=== PATIENT | male | born 1970 | race Caucasian/White ===

== ENCOUNTER 2018-06-18 08:19 | Day surgery (SDC) | payer BC, OTHER ==
[2018-06-15 11:24] VITALS: BMI 31.4
[~2018-06-18 08:19] MED LIST: LACTATED RINGERS 1,000 ML IV SCH; LIDOCAINE 1% 20 ML VIAL (10MG/ML) FOR IV START INTRADERMA PRN
[2018-06-18 09:16] VITALS: RESP 16; TEMP 98.2
[2018-06-18] MEDS ORDERED: PROPOFOL 10 MG/ML 20 ML VIAL IV ONE (09:41)
[2018-06-18] MEDS ORDERED: LIDOCAINE 1% INJ 10MG/ML (20 ML MDV) ONE (09:41)
--- NOTE | 2018-06-18 09:54 | P.GSHP ---
History of Present Illness H&P Date: 06/18/18 Chief Complaint: GI bleed This a 47-year-old male referred from Dr. Mando Willis. Patient rents today for colonoscopy. He's had issues with rectal bleeding. Patient states heis blood when he wipes himself. Past Medical History Past Medical History: GERD/Reflux Additional Past Medical History / Comment(s): neck pain, blood in stool @times, frequent bloating, diarrhea @times, blind right eye History of Any Multi-Drug Resistant Organisms: None Reported Past Surgical History: Orthopedic Surgery Additional Past Surgical History / Comment(s): right arm,wrist, right side of face & knee surg related to accident Past Anesthesia/Blood Transfusion Reactions: No Reported Reaction Smoking Status: Never smoker - Past Family History Mother Family Medical History: No Reported History Medications and Allergies Home Medications Medication Instructions Recorded Confirmed Type Ibuprofen [Motrin] 800 mg PO TID PRN 03/11/17 06/18/18 History Atorvastatin [Lipitor] 10 mg PO DAILY 06/15/18 06/18/18 History Esomeprazole Magnesium [NexIUM] 1 tab PO DAILY 06/15/18 06/18/18 History Topiramate [Topamax] 25 mg PO DAILY 06/18/18 06/18/18 History Allergies Allergy/AdvReac Type Severity Reaction Status Date / Time No Known Allergies Allergy Verified 06/15/18 11:10 Surgical - Exam Vital Signs Temp Pulse Resp BP Pulse Ox 98.2 F 87 16 133/86 95 06/18/18 09:14 06/18/18 09:14 06/18/18 09:14 06/18/18 09:14 06/18/18 09:14 - General well developed, no distress - Eyes PERRL - ENT normal pinna - Neck no masses - Respiratory normal expansion - Cardiovascular Rhythm: regular - Abdomen Abdomen: soft, non tender Assessment and Plan Assessment: GI bleed. We'll perform colonoscopy.
--- NOTE | 2018-06-18 10:04 | P.OP ---
Date of Procedure: 06/18/18 Preoperative Diagnosis: Rectal bleeding Postoperative Diagnosis: Internal hemorrhoids Diverticulosis Procedure(s) Performed: Colonoscopy Anesthesia: MAC Surgeon: Willis Lara Pathology: none sent Condition: stable Disposition: PACU Description of Procedure: The patient's placed on the endoscopy table in the lateral position. He received IV sedation. Digital rectal exam was performed which revealed internal hemorrhoids. The flexible colonoscope was then placed patient anus passed rotator entire colon. The ileocecal valve was visualized. The cecum, ascending and transverse colon appeared normal. In the descending and sigmoid colon there is moderate diverticular changes. The scope was then brought back the rectum and this appeared normal. Scope was withdrawn through the anus and internal hemorrhage were noted. There is no evidence of any active GI bleed. It was presumed the patient's previous rectal bleeding was due to internal hemorrhoids.
[2018-06-18 10:55] VITALS: BP 150/88; PULSE 88
== END 2018-06-18 10:53 | disposition home or self-care (01) ==
LOC: ORWHC2ENDO 08:19
PROVIDERS: ATTEND Surgery
DX: K64.8 Other hemorrhoids (principal); K57.30 Diverticulosis of large intestine without perforation or abscess without bleeding; K21.9 Gastro-esophageal reflux disease without esophagitis; M54.2 Cervicalgia; H54.61 Unqualified visual loss, right eye, normal vision left eye; E78.5 Hyperlipidemia, unspecified; Z79.899 Other long term (current) drug therapy
CPT/HCPCS: 45378; J2001; J2704

== ENCOUNTER 2018-09-06 15:52 | Inpatient (IN) | payer BC ==
[2018-09-06] MEDS ORDERED: SODIUM CHLORIDE 0.9% 1,000 ML IV STA (16:12)
[2018-09-06] MEDS ORDERED: KETOROLAC 30 MG/ML 1 ML VIAL IVP STA (16:12)
--- NOTE | 2018-09-06 16:16 | ED ---
General Adult HPI - General Chief complaint: Abdominal Pain Stated complaint: poss hernia Time Seen by Provider: 09/06/18 16:06 Source: patient, RN notes reviewed, old records reviewed Mode of arrival: ambulatory Limitations: no limitations - History of Present Illness Initial comments: 47 -year-old male presents for evaluation of lower abdominal pain. Patient is dull with intermittent abdominal pain over the past several years. Over the past 24-48 hours he's had increasing lower abdominal pain. He reports increased urinary frequency as well as dysuria. Pain is. Only suprapubic. Denies hematuria. Denies testicular pain. Denies flank pain. He does report increased in stool output, no diarrhea. Nothing relieves his pain. Denies upper abdominal pain, denies vomiting. Denies chest pain or dyspnea. - Related Data Home Medications Medication Instructions Recorded Confirmed Ibuprofen [Motrin] 800 mg PO TID PRN 03/11/17 09/06/18 Atorvastatin [Lipitor] 10 mg PO DAILY 06/15/18 09/06/18 Esomeprazole Magnesium [NexIUM] 20 mg PO DAILY 06/15/18 09/06/18 Topiramate [Topamax] 25 mg PO DAILY 06/18/18 09/06/18 Allergies Allergy/AdvReac Type Severity Reaction Status Date / Time No Known Allergies Allergy Verified 09/06/18 16:37 Review of Systems ROS Statement: Those systems with pertinent positive or pertinent negative responses have been documented in the HPI. ROS Other: All systems not noted in ROS Statement are negative. Past Medical History Past Medical History: GERD/Reflux Additional Past Medical History / Comment(s): neck pain, blood in stool @times, frequent bloating, diarrhea @times, blind right eye History of Any Multi-Drug Resistant Organisms: None Reported Past Surgical History: Orthopedic Surgery Additional Past Surgical History / Comment(s): right arm,wrist, right side of face & knee surg related to accident Past Anesthesia/Blood Transfusion Reactions: No Reported Reaction Past Psychological History: No Psychological Hx Reported Smoking Status: Never smoker Past Alcohol Use History: None Reported Past Drug Use History: None Reported - Past Family History Mother Family Medical History: No Reported History General Exam Limitations: no limitations General appearance: alert, in no apparent distress Head exam: Present: atraumatic, normocephalic Eye exam: Present: normal appearance, PERRL ENT exam: Present: mucous membranes dry Neck exam: Present: normal inspection. Absent: tenderness, meningismus Respiratory exam: Present: normal lung sounds bilaterally. Absent: respiratory distress, wheezes Cardiovascular Exam: Present: normal rhythm, tachycardia GI/Abdominal exam: Present: soft, tenderness (Suprapubic tenderness). Absent: distended, guarding, rebound exam: Present: vertical testicular lie. Absent: testicular tenderness, urethral discharge, scrotal swelling Extremities exam: Present: normal inspection, normal capillary refill. Absent: pedal edema Neurological exam: Present: alert, oriented X3, CN II-XII intact. Absent: motor sensory deficit Psychiatric exam: Present: normal affect, normal mood Skin exam: Present: warm, dry, intact. Absent: cyanosis, diaphoretic Course Vital Signs 09/06/18 09/06/18 16:02 17:43 Temperature 100.0 F H 98.7 F Pulse Rate 120 H 121 H Respiratory 18 18 Rate Blood Pressure 142/86 131/93 O2 Sat by Pulse 95 Oximetry Medical Decision Making - Medical Decision Making 47-year-old male with lower abdominal pain. Patient is febrile, tachycardic on initial evaluation. Workup in the emergency department reveals elevated white count 19,000. Normal lactic acid, otherwise normal laboratory studies. CT is performed, shows sigmoid diverticulitis with fat stranding, no perforation. Patient is initiated on Zosyn and Flagyl. He remains somewhat tachycardic with persistent symptoms. Will be admitted for IV antibiotics, IV fluids, and pain control. Case discussed with admitting physician. - Lab Data Result diagrams: 09/06/18 16:28 09/06/18 16:28 Lab Results 09/06/18 09/06/18 09/06/18 Range/Units 16:15 16:28 16:28 WBC 18.9 H (3.8-10.6) k/uL RBC 5.46 (4.30-5.90) m/uL Hgb 15.9 (13.0-17.5) gm/dL Hct 46.5 (39.0-53.0) % MCV 85.2 (80.0-100.0) fL MCH 29.1 (25.0-35.0) pg MCHC 34.1 (31.0-37.0) g/dL RDW 13.7 (11.5-15.5) % Plt Count 320 (150-450) k/uL Neutrophils % 83 % Lymphocytes % 10 % Monocytes % 5 % Eosinophils % 1 % Basophils % 0 % Neutrophils # 15.6 H (1.3-7.7) k/uL Lymphocytes # 1.9 (1.0-4.8) k/uL Monocytes # 1.0 (0-1.0) k/uL Eosinophils # 0.2 (0-0.7) k/uL Basophils # 0.1 (0-0.2) k/uL Sodium 142 (137-145) mmol/L Potassium 4.1 (3.5-5.1) mmol/L Chloride 109 H (98-107) mmol/L Carbon Dioxide 23 (22-30) mmol/L Anion Gap 10 mmol/L BUN 20 (9-20) mg/dL Creatinine 0.98 (0.66-1.25) mg/dL Est GFR (CKD-EPI)AfAm >90 (>60 ml/min/1.73 sqM) Est GFR (CKD-EPI)NonAf >90 (>60 ml/min/1.73 sqM) Glucose 104 H (74-99) mg/dL Plasma Lactic Acid Sterling (0.7-2.0) mmol/L Calcium 10.3 H (8.4-10.2) mg/dL Total Bilirubin 0.6 (0.2-1.3) mg/dL AST 31 (17-59) U/L ALT 40 (21-72) U/L Alkaline Phosphatase 82 (38-126) U/L Total Protein 7.5 (6.3-8.2) g/dL Albumin 4.7 (3.5-5.0) g/dL Amylase 75 (30-110) U/L Lipase 152 (23-300) U/L Urine Color Yellow Urine Appearance Clear (Clear) Urine pH 5.5 (5.0-8.0) Ur Specific Temple 1.025 (1.001-1.035) Urine Protein Negative (Negative) Urine Glucose (UA) Negative (Negative) Urine Ketones Negative (Negative) Urine Blood Trace H (Negative) Urine Nitrite Negative (Negative) Urine Bilirubin Negative (Negative) Urine Urobilinogen <2.0 (<2.0) mg/dL Ur Leukocyte Esterase Negative (Negative) Urine RBC 1 (0-5) /hpf Urine WBC <1 (0-5) /hpf Urine Mucus Rare H (None) /hpf 09/06/18 Range/Units 16:28 WBC (3.8-10.6) k/uL RBC (4.30-5.90) m/uL Hgb (13.0-17.5) gm/dL Hct (39.0-53.0) % MCV (80.0-100.0) fL MCH (25.0-35.0) pg MCHC (31.0-37.0) g/dL RDW (11.5-15.5) % Plt Count (150-450) k/uL Neutrophils % % Lymphocytes % % Monocytes % % Eosinophils % % Basophils % % Neutrophils # (1.3-7.7) k/uL Lymphocytes # (1.0-4.8) k/uL Monocytes # (0-1.0) k/uL Eosinophils # (0-0.7) k/uL Basophils # (0-0.2) k/uL Sodium (137-145) mmol/L Potassium (3.5-5.1) mmol/L Chloride (98-107) mmol/L Carbon Dioxide (22-30) mmol/L Anion Gap mmol/L BUN (9-20) mg/dL Creatinine (0.66-1.25) mg/dL Est GFR (CKD-EPI)AfAm (>60 ml/min/1.73 sqM) Est GFR (CKD-EPI)NonAf (>60 ml/min/1.73 sqM) Glucose (74-99) mg/dL Plasma Lactic Acid Sterling 1.2 (0.7-2.0) mmol/L Calcium (8.4-10.2) mg/dL Total Bilirubin (0.2-1.3) mg/dL AST (17-59) U/L ALT (21-72) U/L Alkaline Phosphatase (38-126) U/L Total Protein (6.3-8.2) g/dL Albumin (3.5-5.0) g/dL Amylase (30-110) U/L Lipase (23-300) U/L Urine Color Urine Appearance (Clear) Urine pH (5.0-8.0) Ur Specific Temple (1.001-1.035) Urine Protein (Negative) Urine Glucose (UA) (Negative) Urine Ketones (Negative) Urine Blood (Negative) Urine Nitrite (Negative) Urine Bilirubin (Negative) Urine Urobilinogen (<2.0) mg/dL Ur Leukocyte Esterase (Negative) Urine RBC (0-5) /hpf Urine WBC (0-5) /hpf Urine Mucus (None) /hpf Disposition Clinical Impression: Diverticulitis Disposition: ADMITTED IP TO THIS [facility] Condition: Stable Is patient prescribed a controlled substance at d/c from ED?: No Referrals: Mando Willis DO [Primary Care Provider] - 1-2 days Decision to Admit Reason: Admit from EC Decision Date: 09/06/18 Decision Time: 18:41
[2018-09-06 16:31] LABS: Appearance,Urine Clear (Clear); Bilirubin,Urine Negative (Negative); Blood,Urine Trace (Negative); Color,Urine Yellow; Glucose,Urine (UA) Negative (Negative); Ketones,Urine Negative (Negative); Leukocyte Esterase,Urine Negative (Negative); Mucus,Urine Rare /hpf; Nitrite,Urine Negative (Negative); PH, Urine 5.5 (5.0-8.0); Protein,Urine Negative (Negative); RBC,Urine 1 /hpf (0-5); Specific Gravity,Urine 1.025 (1.001-1.035); Urobilinogen,Urine <2.0 mg/dL (<2.0); WBC,Urine <1 /hpf (0-5)
[2018-09-06] MEDS ORDERED: MORPHINE SULFATE 4 MG/ML SYRINGE IVP STA (16:45)
[2018-09-06 16:46] LABS: Basophils # (A) 0.1 k/uL (0-0.2); Basophils % (A) 0 %; Eosinophils # (A) 0.2 k/uL (0-0.7); Eosinophils % (A) 1 %; HCT 46.5 % (39.0-53.0); HGB 15.9 gm/dL (13.0-17.5); Lymphocytes # (A) 1.9 k/uL (1.0-4.8); Lymphocytes % (A) 10 %; MCH 29.1 pg (25.0-35.0); MCHC 34.1 g/dL (31.0-37.0); MCV 85.2 fL (80.0-100.0); Mean Platelet Volume 7.3; Monocytes % (A) 5 %; Neutrophils # (A) 15.6 k/uL (1.3-7.7); Neutrophils % (A) 83 %; Platelet Count 320 k/uL (150-450); RBC 5.46 m/uL (4.30-5.90); RDW 13.7 % (11.5-15.5); WBC 18.9 k/uL (3.8-10.6)
[2018-09-06] MEDS ORDERED: ONDANSETRON 4 MG/2 ML VIAL IVP STA (16:47)
[2018-09-06 16:50] LABS: ALT 40 U/L (21-72); AST 31 U/L (17-59); Albumin 4.7 g/dL (3.5-5.0); Alkaline Phosphatase 82 U/L (38-126); Amylase 75 U/L (30-110); Anion Gap 10 mmol/L; Blood Urea Nitrogen 20 mg/dL (9-20); Calcium 10.3 mg/dL (8.4-10.2); Carbon Dioxide 23 mmol/L (22-30); Chloride 109 mmol/L (98-107); Glucose 104 mg/dL (74-99); Lipase 152 U/L (23-300); Potassium 4.1 mmol/L (3.5-5.1); Sodium 142 mmol/L (137-145); Total Bilirubin 0.6 mg/dL (0.2-1.3); Total Protein 7.5 g/dL (6.3-8.2)
--- NOTE | 2018-09-06 16:58 | XR ---
EXAMINATION TYPE: XR KUB DATE OF EXAM: 09/06/2018 COMPARISON: NONE HISTORY: Abdominal pain TECHNIQUE: 2 views FINDINGS: Bowel gas pattern is normal. There is no sign of intestinal obstruction or pneumoperitoneum . Fecal pattern is normal. There is no evidence of a mass. There are no pathologic calcifications. Lung bases are clear. IMPRESSION: Nonacute abdomen.
[2018-09-06] MEDS ORDERED: PIPERACILLIN-TAZOBACTAM 3.375 GM in SODIUM CHLORIDE 0.9% 100 ML IVPB STA (17:08)
--- NOTE | 2018-09-06 17:23 | CT ---
EXAMINATION TYPE: CT abdomen pelvis wo con DATE OF EXAM: 09/06/2018 COMPARISON: None HISTORY: lower anterior abdominal pain CT DLP: 572.5 mGycm Automated exposure control for dose reduction was used. TECHNIQUE: Helical acquisition of images was performed from the lung bases through the pelvis. FINDINGS: Lung bases are clear of consolidation. There is no pleural effusion. Heart size is normal. There is n o pericardial effusion. Liver spleen stomach pancreas gallbladder appear normal. Bile ducts are not d ilated. There is no adrenal mass. Kidneys have normal size and contour. There are a few bilateral renal calcu li that measure up to 6 mm. There is no hydronephrosis. Ureters are not dilated. There is no retroper itoneal adenopathy. Bladder distends smoothly. There is no free fluid in the pelvis. There is no ingu inal hernia. There are multiple sigmoid diverticula. There is some fat stranding around the mid sigmoid colon. Lizzie endix appears normal. There is no free air. There is no ascites. Bony structures are intact. IMPRESSION: THERE IS EVIDENCE OF SIGMOID DIVERTICULITIS. MILD TO MODERATE SIGMOID DIVERTICULOSIS. NORMAL APPENDIX .
[2018-09-06] MEDS ORDERED: metroNIDAZOLE-NS PMX 500 MG in SALINE 1 100ML.BAG IVPB STA (18:36)
[2018-09-06] MEDS ORDERED: ACETAMINOPHEN TAB 325 MG TAB PO PRN (18:37)
[2018-09-06] MEDS ORDERED: KETOROLAC 30 MG/ML 1 ML VIAL IVP PRN (18:37)
[2018-09-06] MEDS ORDERED: ONDANSETRON 4 MG/2 ML VIAL IVP PRN (18:37)
[2018-09-06] MEDS ORDERED: HYDROmorphone 0.5 MG/0.5 ML SYRINGE IVP PRN (18:37)
[2018-09-06] MEDS ORDERED: NALOXONE 0.4 MG/ML 1 ML VIAL IV PRN (18:37)
[2018-09-06] MEDS: SODIUM CHLORIDE 0.9% 1,000 ML IV SCH (20:27)
[2018-09-06 23:36] VITALS: BMI 31.9
[2018-09-07] MEDS: PIPERACILLIN-TAZOBACTAM 3.375 GM in SODIUM CHLORIDE 0.9% 100 ML IVPB SCH ×4 (02:34→23:43)
[2018-09-07] MEDS: metroNIDAZOLE-NS PMX 500 MG in SALINE 1 100ML.BAG IVPB SCH ×3 (05:02→22:17)
[2018-09-07] MEDS: SODIUM CHLORIDE 0.9% 1,000 ML IV SCH ×2 (05:05→13:45)
--- NOTE | 2018-09-07 11:56 | P.GSHP ---
History of Present Illness H&P Date: 09/07/18 Chief Complaint: abdominal pain CHIEF COMPLAINT: Abdominal pain HISTORY OF PRESENT ILLNESS: 47-year-old male who presented to emergency room with a chief complaint of abdominal pain. Patient reports he has been having intermittent abdominal pain over the past week. He reports on Friday he began having severe pain in the lower part of his head. He denied constipation or diarrhea. Denies nausea or vomiting. Patient states he was on the Internet googling his symptoms and thought he had a hernia. Patient underwent colonoscopy with Dr. Lara in June 2018 due to rectal bleeding w hich revealed internal hemorrhoids and diverticulosis. PAST MEDICAL HISTORY: See list. PAST SURGICAL HISTORY: See list. SOCIAL HISTORY: No illicit drug use. REVIEW OF SYSTEMS: CONSTITUTIONAL: Denies fever or chills. HEENT: Denies blurred vision, vision changes, or eye pain. Denies hemoptysis CARDIOVASCULAR: Denies chest pain or pressure. RESPIRATORY: No shortness of breath. GASTROINTESTINAL: Refer to [facility] for pertinent findings HEMATOLOGIC: Denies bleeding disorders. GENITOURINARY: Denies any blood in urine. SKIN: Denies pruitis. Denies rash. PHYSICAL EXAM: VITAL SIGNS: Reviewed. GENERAL: Well-developed in no acute distress. HEENT: No sclera icterus. Extraocular movements grossly intact. Moist buccal mucosa. Head is atraumatic, normocephalic. ABDOMEN: Soft. Nondistended. Tenderness to left lower quadrant. NEUROLOGIC: Alert and oriented. Cranial nerves II through XII grossly intact. IMAGING: CT abdomen and pelvis: Evidence of sigmoid diverticulitis. ASSESSMENT: 1. Abdominal pain 2. Acute sigmoid diverticulitis PLAN: 1. Continue antibiotics 2. Clear liquid diet Nurse practitioner note has been reviewed by physician. Signing provider agrees with the documented findings, assessment, and plan of care. Past Medical History Past Medical History: GERD/Reflux Additional Past Medical History / Comment(s): neck pain, blood in stool @times, frequent bloating, diarrhea @times, blind right eye History of Any Multi-Drug Resistant Organisms: None Reported Past Surgical History: Orthopedic Surgery Additional Past Surgical History / Comment(s): right arm,wrist, right side of face & knee surg related to accident Past Anesthesia/Blood Transfusion Reactions: No Reported Reaction Past Psychological History: No Psychological Hx Reported Smoking Status: Never smoker Past Alcohol Use History: None Reported Past Drug Use History: None Reported - Past Family History Mother Family Medical History: No Reported History Medications and Allergies Home Medications Medication Instructions Recorded Confirmed Type Ibuprofen [Motrin] 800 mg PO TID PRN 03/11/17 09/06/18 History Atorvastatin [Lipitor] 10 mg PO DAILY 06/15/18 09/06/18 History Esomeprazole Magnesium [NexIUM] 20 mg PO DAILY 06/15/18 09/06/18 History Topiramate [Topamax] 25 mg PO DAILY 06/18/18 09/06/18 History Allergies Allergy/AdvReac Type Severity Reaction Status Date / Time No Known Allergies Allergy Verified 09/06/18 16:37 Surgical - Exam Vital Signs Temp Pulse Resp BP 100.0 F H 120 H 18 142/86 09/06/18 16:02 09/06/18 16:02 09/06/18 16:02 09/06/18 16:02 Results - Labs 09/06/18 16:28 09/06/18 16:28 Abnormal Lab Results - Last 24 Hours (Table) 09/06/18 09/06/18 09/06/18 Range/Units 16:15 16:28 16:28 WBC 18.9 H (3.8-10.6) k/uL Neutrophils # 15.6 H (1.3-7.7) k/uL Chloride 109 H (98-107) mmol/L Glucose 104 H (74-99) mg/dL Calcium 10.3 H (8.4-10.2) mg/dL Urine Blood Trace H (Negative) Urine Mucus Rare H (None) /hpf Microbiology - Last 24 Hours (Table) 09/06/18 16:15 Urine Culture - Preliminary Urine,Voided Diabetes panel 09/06/18 Range/Units 16:28 Sodium 142 (137-145) mmol/L Potassium 4.1 (3.5-5.1) mmol/L Chloride 109 H (98-107) mmol/L Carbon Dioxide 23 (22-30) mmol/L BUN 20 (9-20) mg/dL Creatinine 0.98 (0.66-1.25) mg/dL Glucose 104 H (74-99) mg/dL Calcium 10.3 H (8.4-10.2) mg/dL AST 31 (17-59) U/L ALT 40 (21-72) U/L Alkaline Phosphatase 82 (38-126) U/L Total Protein 7.5 (6.3-8.2) g/dL Albumin 4.7 (3.5-5.0) g/dL Calcium panel 09/06/18 Range/Units 16:28 Calcium 10.3 H (8.4-10.2) mg/dL Albumin 4.7 (3.5-5.0) g/dL Pituitary panel 09/06/18 Range/Units 16:28 Sodium 142 (137-145) mmol/L Potassium 4.1 (3.5-5.1) mmol/L Chloride 109 H (98-107) mmol/L Carbon Dioxide 23 (22-30) mmol/L BUN 20 (9-20) mg/dL Creatinine 0.98 (0.66-1.25) mg/dL Glucose 104 H (74-99) mg/dL Calcium 10.3 H (8.4-10.2) mg/dL Adrenal panel 09/06/18 Range/Units 16:28 Sodium 142 (137-145) mmol/L Potassium 4.1 (3.5-5.1) mmol/L Chloride 109 H (98-107) mmol/L Carbon Dioxide 23 (22-30) mmol/L BUN 20 (9-20) mg/dL Creatinine 0.98 (0.66-1.25) mg/dL Glucose 104 H (74-99) mg/dL Calcium 10.3 H (8.4-10.2) mg/dL Total Bilirubin 0.6 (0.2-1.3) mg/dL AST 31 (17-59) U/L ALT 40 (21-72) U/L Alkaline Phosphatase 82 (38-126) U/L Total Protein 7.5 (6.3-8.2) g/dL Albumin 4.7 (3.5-5.0) g/dL
[2018-09-07] MEDS: HEPARIN SODIUM,PORCINE 5,000 UNIT/ML 1 ML VIAL SQ SCH (22:20)
--- NOTE | 2018-09-07 22:24 | P.CONS ---
History of Present Illness - Reason for Consult Consult date: 09/07/18 Medical management - Chief Complaint Abdominal pain - History of Present Illness Patient is a 47-year-old male with a known history of GERD, diverticulosis status post colonoscopy in June 2018, internal hemorrhoids came to ER with the complaints of abdominal pain mainly in the lower abdomen. Patient has been having worsening lower abdominal pain since Friday. Denied any nausea vomiting. No diarrhea but increasing stool output. Patient has been having increased urine frequency. Denied any blood in the stool. Nothing relieves his pain. Denies upper abdominal pain, denies vomiting. Denies chest pain or dyspnea. No cough or sputum production. CT abdomen and pelvis showed there is evidence of sigmoid diverticulitis. Mild to moderate sigmoid diverticulosis. Normal appendix. WBC 18.9. Patient is currently on antibiotics in the form of Zosyn and metronidazole as well. Review of Systems Constitutional: Patient denies any fever or chills . No generalized weakness or weight loss. Abdomen: No nausea no vomiting. No diarrhea. Lower abdominal pain present.. Cardiovascular: Patient denies any chest pain or short of breath no p alpitations. Respiratory: patient denied any cough is from production. No shortness of breath Neurologic: Patient denied any numbness or tingling headache. Musculoskeletal: Patient denies any complaints of joint swelling or deformity. Skin: Negative Psychiatric: Negative Endocrine: No heat or cold intolerance. No recent weight gain. Genitourinary: No dysuria or hematuria. All other 14 point ROS negative except the above Past Medical History Past Medical History: GERD/Reflux Additional Past Medical History / Comment(s): neck pain, blood in stool @times, frequent bloating, diarrhea @times, blind right eye History of Any Multi-Drug Resistant Organisms: None Reported Past Surgical History: Orthopedic Surgery Additional Past Surgical History / Comment(s): right arm,wrist, right side of face & knee surg related to accident Past Anesthesia/Blood Transfusion Reactions: No Reported Reaction Past Psychological History: No Psychological Hx Reported Smoking Status: Never smoker Past Alcohol Use History: None Reported Past Drug Use History: None Reported - Past Family History Mother Family Medical History: No Reported History Medications and Allergies Home Medications Medication Instructions Recorded Confirmed Type Ibuprofen [Motrin] 800 mg PO TID PRN 03/11/17 09/06/18 History Atorvastatin [Lipitor] 10 mg PO DAILY 06/15/18 09/06/18 History Esomeprazole Magnesium [NexIUM] 20 mg PO DAILY 06/15/18 09/06/18 History Topiramate [Topamax] 25 mg PO DAILY 06/18/18 09/06/18 History Allergies Allergy/AdvReac Type Severity Reaction Status Date / Time No Known Allergies Allergy Verified 09/06/18 16:37 Physical Exam Vitals: Vital Signs Temp Pulse Pulse Pulse Resp BP BP 09/07/18 07:20 17 09/07/18 07:00 98.4 F 84 17 122/80 09/07/18 00:08 98.2 F 89 95 16 123/84 09/06/18 20:26 98.7 F 98 20 132/94 09/06/18 17:43 98.7 F 121 H 18 131/93 09/06/18 16:02 100.0 F H 120 H 18 142/86 Pulse Ox 09/07/18 07:20 09/07/18 07:00 94 L 09/07/18 00:08 09/06/18 20:26 96 09/06/18 17:43 95 09/06/18 16:02 Intake and Output 09/06/18 09/07/18 09/07/18 22:59 06:59 14:59 Intake Total 1000 Balance 1000 Intake: Intake, IV Titration 1000 Amount Sodium Chloride 0.9% 1, 1000 000 ml @ 100 mls/hr IV . Q10H [facility] Rx#:[id number] Other: Weight 92.624 kg PHYSICAL EXAMINATION: Patient is lying in the bed comfortably, no acute distress, awake alert and oriented.. HEENT: Normocephalic. Neck is supple. Pupils reactive. Nostrils clear. Oral cavity is moist. Ears reveal no drainage. Neck reveals no JVD, carotid bruits, or thyromegaly. CHEST EXAMINATION: Trachea is central. Symmetrical expansion. Lung de leon clear to auscultation and percussion. CARDIAC: Normal S1, S2 with no gallops. No murmurs ABDOMEN: Soft. Lower abdominal tenderness mild. Bowel sounds normal. No organomegaly. No abdominal bruits. Extremities: reveal no edema. No clubbing or cyanosis Neurologically awake, alert, oriented x3 with well-coordinated movements. No focal deficits noted Skin: No rash or skin lesions. Psychiatric: Coperative. Nonsuicidal Musculoskeletal: No joint swelling or deformity. Normal range of motion. Results CBC & Chem 7: 09/06/18 16:28 09/06/18 16:28 Labs: Abnormal Lab Results - Last 24 Hours (Table) 09/06/18 09/06/18 09/06/18 Range/Units 16:15 16:28 16:28 WBC 18.9 H (3.8-10.6) k/uL Neutrophils # 15.6 H (1.3-7.7) k/uL Chloride 109 H (98-107) mmol/L Glucose 104 H (74-99) mg/dL Calcium 10.3 H (8.4-10.2) mg/dL Urine Blood Trace H (Negative) Urine Mucus Rare H (None) /hpf Microbiology - Last 24 Hours (Table) 09/06/18 16:15 Urine Culture - Preliminary Urine,Voided Assessment and Plan Assessment: Lower abdominal pain secondary to acute sigmoid diverticulitis Sepsis secondary to diverticulitis. Patient was tachycardic and WBC 18.8 on admission.. History of diverticulosis and internal hemorrhoids status post coloscopy in June 2018 Chronic intermittent abdominal pain GERD Right eye blindness DVT prophylaxis Plan: Patient will be continued on IV hydration. Continue with IV antibiotics in the form of Zosyn. Flagyl can be discontinued. Patient was started on clear liquid diet and advance as tolerated. Follow-up CBC and BMP. Otherwise continue the current management and further recommendations based on the clinical course. We will continue to follow. Thank you for your consult. Time with Patient: Greater than 30
[2018-09-08] MEDS: SODIUM CHLORIDE 0.9% 1,000 ML IV SCH (00:52)
[2018-09-08 02:16] VITALS: TEMP 98
[2018-09-08] MEDS: metroNIDAZOLE-NS PMX 500 MG in SALINE 1 100ML.BAG IVPB SCH (05:00)
[2018-09-08] MEDS: PIPERACILLIN-TAZOBACTAM 3.375 GM in SODIUM CHLORIDE 0.9% 100 ML IVPB SCH (07:11)
[2018-09-08] MEDS: HEPARIN SODIUM,PORCINE 5,000 UNIT/ML 1 ML VIAL SQ SCH (07:16)
[2018-09-08 07:20] VITALS: BP 137/82; PULSE 81; RESP 17
[2018-09-08] MEDS ORDERED: PANTOPRAZOLE 40 MG TABLET PO SCH (07:30)
[2018-09-08 07:37] LABS: Anion Gap 8 mmol/L; Blood Urea Nitrogen 11 mg/dL (9-20); Calcium 9.3 mg/dL (8.4-10.2); Carbon Dioxide 26 mmol/L (22-30); Chloride 109 mmol/L (98-107); Glucose 97 mg/dL (74-99); Potassium 3.8 mmol/L (3.5-5.1); Sodium 143 mmol/L (137-145)
[2018-09-08 07:54] LABS: Basophils # (A) 0.1 k/uL (0-0.2); Basophils % (A) 1 %; Eosinophils # (A) 0.2 k/uL (0-0.7); Eosinophils % (A) 2 %; HCT 44.4 % (39.0-53.0); HGB 14.8 gm/dL (13.0-17.5); Lymphocytes # (A) 2.9 k/uL (1.0-4.8); Lymphocytes % (A) 26 %; MCH 29.1 pg (25.0-35.0); MCHC 33.4 g/dL (31.0-37.0); MCV 87.2 fL (80.0-100.0); Mean Platelet Volume 7.2; Monocytes # (A) 0.7 k/uL (0-1.0); Monocytes % (A) 7 %; Neutrophils # (A) 7.2 k/uL (1.3-7.7); Neutrophils % (A) 64 %; Platelet Count 321 k/uL (150-450); RBC 5.09 m/uL (4.30-5.90); RDW 13.7 % (11.5-15.5); WBC 11.2 k/uL (3.8-10.6)
[2018-09-08] MEDS ORDERED: ATORVASTATIN 10 MG TAB PO SCH (09:00)
[2018-09-08] MEDS ORDERED: TOPIRAMATE 25 MG TAB PO SCH (09:00)
--- NOTE | 2018-09-08 13:22 | P.DS ---
Providers Date of admission: 09/06/18 18:37 Expected date of discharge: 09/08/18 Attending physician: Willis Lara Consults: 09/07/18 09:08 Consult Physician Routine Consulting Provider: Mando iWllis Reason/Comments: medical management Do you want consulting provider notified?: Yes Primary care physician: Mando [facility] Course: 47-year-old male who presented to emergency room with a chief complaint of abdominal pain. Patient reports he has been having intermittent abdominal pain over the past week. He reports on Friday he began having severe pain in the lower part of his head. He denied constipation or diarrhea. Denies nausea or vomiting. Patient states he was on the Internet googling his symptoms and thought he had a hernia. Patient underwent colonoscopy with Dr. Lara in June 2018 due to rectal bleeding which revealed internal hemorrhoids and diverticulosis. CAT scan abdomen and pelvis revealed evidence of sigmoid diverticulitis. The patient was placed on IV antibiotics. His abdominal pain has resolved. He is tolerating oral intake. White count on admission was 18.9. Repeat 11.2. Vital signs have been stable. Afebrile. Stable for discharge home today on Cipro and Flagyl for 10 days. Patient is to follow up on an outpatient basis. Please see EMR for further hospital course details. Discharge diagnosis: 1. Abdominal pain 2. Acute sigmoid diverticulitis Nurse practitioner note has been reviewed by physician. Signing provider agrees with the documented findings, assessment, and plan of care. Patient Condition at Discharge: Stable Plan - Discharge Summary Discharge Rx Participant: Yes New Discharge Prescriptions: New Ciprofloxacin HCl [Cipro] 500 mg PO BID #20 tab metroNIDAZOLE [Flagyl] 500 mg PO TID #30 tab No Action Ibuprofen [Motrin] 800 mg PO TID PRN PRN Reason: Pain Atorvastatin [Lipitor] 10 mg PO DAILY Esomeprazole Magnesium [NexIUM] 20 mg PO DAILY Topiramate [Topamax] 25 mg PO DAILY Discharge Medication List Ibuprofen [Motrin] 800 mg PO TID PRN 03/11/17 [History] Atorvastatin [Lipitor] 10 mg PO DAILY 06/15/18 [History] Esomeprazole Magnesium [NexIUM] 20 mg PO DAILY 06/15/18 [History] Topiramate [Topamax] 25 mg PO DAILY 06/18/18 [History] Ciprofloxacin HCl [Cipro] 500 mg PO BID #20 tab 09/08/18 [Rx] metroNIDAZOLE [Flagyl] 500 mg PO TID #30 tab 09/08/18 [Rx] Follow up Appointment(s)/Referral(s): Mando Willis DO [Primary Care Provider] - 09/15/18 2:20 pm Willis Lara MD [STAFF PHYSICIAN] - 09/17/18 2:00 pm Patient Instructions/Handouts: Perforated Bowel (DC) Discharge Disposition: HOME SELF-CARE
--- NOTE | 2018-09-08 23:27 | P.PN ---
Subjective Progress Note Date: 09/08/18 Patient is a 47-year-old male with a known history of GERD, diverticulosis status post colonoscopy in June 2018, internal hemorrhoids came to ER with the complaints of abdominal pain mainly in the lower abdomen. Patient has been having worsening lower abdominal pain since Friday. Denied any nausea v omiting today..he is upright using the bhroom tolerating clear liquidsin no acute distressfrom medical standpoint he could be cleared for discharge when okay by surgery Objective - Vital Signs Vital signs: Vital Signs Temp 98.0 F 09/08/18 01:30 Pulse 81 09/08/18 07:00 Resp 17 09/08/18 07:00 BP 137/82 09/08/18 07:00 Pulse Ox 94 L 09/08/18 07:00 Intake & Output 09/07/18 09/08/18 09/08/18 18:59 06:59 18:59 Intake Total 1000 Balance 1000 Intake: Intake, IV Titration 1000 Amount Piperacillin-Tazobactam 3 100 .375 gm In Sodium Chloride 0.9% 100 ml @ 25 mls/hr IVPB Q8HR [facility] Rx# :[id number] Sodium Chloride 0.9% 1, 800 000 ml @ 100 mls/hr IV . Q10H [facility] Rx#:[id number] metroNIDAZOLE-NS PMX 500 100 mg In Saline 1 100ml.bag @ 100 mls/hr IVPB Q8H [facility] Rx#:[id number] Other: # Voids 2 - Exam GENERAL: This is a -47 year-old male in no apparent distress at the time of examination. Pleasant and cooperative. HEENT: Head is atraumatic, normocephalic. Pupils are equal, round, and reactive to light. Sclerae anicteric. Conjunctivae are clear. Mucus membranes of the mouth are moist. Neck is supple. RESPIRATORY: Clear to auscultation. No wheezes, rales, or rhonchi. No use of accessory muscles. Patient maintaining oxygen saturation greater than 92%. No chest wall tenderness is noted on palpation or with deep breathing. CARDIOVASCULAR: Regular rate and rhythm. S1 and S2 noted. No systolic or diastolic murmur auscultated. No JVD noted. No S3 or S4 noted. GASTROINTESTINAL: No distention noted. Abdomen soft and round. Normal active bowel sounds auscultated x 4 quadrants. No pain or tenderness noted upon palpation. INTEGUMENTARY: No cyanosis. No jaundice. No rashes noted. No cellulitis noted. EXTREMITIES: 2+ peripheral pulses. No evidence of peripheral edema. No calf tenderness noted. NEUROLOGIC: Cranial nerves II-XII intact. PSYCHIATRIC: Awake, alert, and oriented X 3. Appropriate affect. Intact judgement and insight. - Labs CBC & Chem 7: 09/08/18 07:11 09/08/18 07:11 Labs: Abnormal Lab Results - Last 24 Hours (Table) 09/08/18 09/08/18 Range/Units 07:11 07:11 WBC 11.2 H (3.8-10.6) k/uL Chloride 109 H (98-107) mmol/L Microbiology - Last 24 Hours (Table) 09/06/18 16:15 Urine Culture - Final Urine,Voided 09/06/18 17:21 Blood Culture - Preliminary Blood No Growth after 24 hours Assessment and Plan (1) Diverticulitis Status: Acute Code(s): K57.92 - DVTRCLI OF INTEST, PART UNSP, W/O PERF OR ABSCESS W/O BLEED SNOMED Code(s): 031625364 Plan: plan is continue Flagyl and Cipro by mouth as outpatient. Follow-up as o utpatient when cleared.
--- NOTE | 2018-09-09 13:17 | CDI ---
Documentation Clarification Form Date: 09/09/18 From: Shweta Miguel Adrienne Keegan, Linting Machine Operator Hours-8:30 am & 5 pm MHowie Admit Date: 09/06/2018 6:37:00 PM Patient Name: Porfirio Nix Visit Number: [id number] Discharge Date: 09/08/2018 10:30:00 AM ATTENTION: The Clinical Documentation Specialists (CDI) and [facility] Coding Staff appreciate your assistance in clarifying documentation. Please respond to the clarification below the line at the bottom and electronically sign. The CDI & [facility] Coding staff will review the response and follow-up if needed. Please note: Queries are made part of the Legal Health Record. If you have any questions, please contact the author of this message via ITS. Dr. Willis Lara Conflicting documentation has been found in the medical record related to sepsis. Per Dr Newsome consult states that the patient had sepsis due to diverticulitis based on WBC 18.9 & Tachycardia. You make no mention of sepsis in your documentation. History/Risk Factors: diverticulitis, GERD, internal hemorrhoids Clinical Indicators: WBC 18.9, Neutrophils 15.6, Heart rate 120/121, lactic acid-1.2 Treatment: IV Zosyn & IV Flagyl In your opinion, what is the most clinically appropriate diagnosis for this patient? Sepsis ruled out Sepsis ruled in Other explanation of clinical findings Unable to determine (no explanation for clinical findings) MTDD
--- NOTE | 2018-09-22 11:47 | CDI ---
Documentation Clarification Form Date: 09/22/2018 From: Shweta Rivera Phone: If questions call Adrienne Allison @ [phone], Hours-8:30 am & 5 pm M- Aleena Admit Date: 09/06/2018 6:37:00 PM Patient Name: Porfirio Nix Visit Number: [id number] Discharge Date: 09/08/2018 10:30:00 AM ATTENTION: The Clinical Documentation Specialists (CDI) and [facility] Coding Staff appreciate your assistance in clarifying documentation. Please respond to the clarification below the line at the bottom and electronically sign. The CDI & [facility] Coding staff will review the response and follow-up if needed. Please note: Queries are made part of the Legal Health Record. If you have any questions, please contact the author of this message via ITS. Dr. Willis Lara Conflicting documentation has been found in the medical record: Per Dr Newsome consult states that the patient had sepsis. You make no mention of sepsis in your documentation. History/Risk Factors: diverticulitis, GERD, internal hemorrhoids Clinical Indicators: Neutrophils 15.6, P-120/121, lactic acid-1.2 Treatment: IV Zosyn & IV Flagyl In your opinion, what is the most clinically appropriate diagnosis for this patient? Sepsis ruled out Sepsis ruled in Other explanation of clinical findings Unable to determine (no explanation for clinical findings) MTDD
== END 2018-09-08 10:30 | disposition home or self-care (01) | DRG 872 ==
LOC: EC 15:52 → 4SSUR 18:37
PROVIDERS: ADMIT Surgery; ATTEND Surgery
DX: A41.9 Sepsis, unspecified organism (principal); K57.32 Diverticulitis of large intestine without perforation or abscess without bleeding; K21.9 Gastro-esophageal reflux disease without esophagitis; K64.8 Other hemorrhoids; H54.61 Unqualified visual loss, right eye, normal vision left eye; Z79.899 Other long term (current) drug therapy; Z87.19 Personal history of other diseases of the digestive system
CPT/HCPCS: 36415; 74018; 74176; 80048; 80053; 81001; 82150; 83605; 83690; 85025; 87040; 87086; 96361; 96365; 96366; 96375; 99285

== ENCOUNTER → 2019-05-13 | Outpatient (CLI) | payer BC ==
[2019-05-13 15:05] LABS: HCT 48.3 % (39.0-53.0); HGB 16.2 gm/dL (13.0-17.5); MCH 29.6 pg (25.0-35.0); MCHC 33.7 g/dL (31.0-37.0); MCV 87.9 fL (80.0-100.0); Mean Platelet Volume 6.6; Platelet Count 305 k/uL (150-450); RBC 5.49 m/uL (4.30-5.90); RDW 12.4 % (11.5-15.5)
[2019-05-13 15:16] LABS: Potassium 4.4 mmol/L (3.5-5.1)
== END | disposition home or self-care (01) ==
LOC: LABPAT 14:31
PROVIDERS: ATTEND Surgery
DX: Z01.812 Encounter for preprocedural laboratory examination (principal); K57.32 Diverticulitis of large intestine without perforation or abscess without bleeding
CPT/HCPCS: 80051; 85027

== ENCOUNTER 2019-05-19 10:17 | Inpatient (IN) | payer BC ==
[2019-05-17 10:02] VITALS: BMI 30.5
[~2019-05-19 10:17] MED LIST changes: +DEXAMETHASONE SOD PHOSPHATE 10 MG/ML 1 ML VIAL IV ONE; +HEPARIN SODIUM,PORCINE 5,000 UNIT/ML 1 ML VIAL SQ ONE; +HYDROmorphone 0.5 MG/0.5 ML SYRINGE IVP PRN; -LACTATED RINGERS 1,000 ML IV SCH; +MIDAZOLAM 2 MG/2 ML VIAL IV PRN; +ONDANSETRON 4 MG/2 ML VIAL IVP ONE; +SCOPOLAMINE 1.5MG/72HR PATCH TRANSDERM ONE; +metroNIDAZOLE-NS PMX 500 MG in SALINE 1 100ML.BAG IVPB ONE
[2019-05-19] MEDS: LACTATED RINGERS 1,000 ML IV SCH ×4 (11:25→19:21)
[2019-05-19] MEDS ORDERED: fentaNYL (PF) 50 MCG/ML 2 ML AMP IV ONE (11:43)
--- NOTE | 2019-05-19 11:59 | P.GSHP ---
History of Present Illness H&P Date: 05/19/19 Chief Complaint: Diverticulitis This a 48-year-old male with previous history of perforated diverticulitis is. Patient presents today for low anterior resection. Patient is aware of the risks surgery including colostomy. Past Medical History Past Medical History: GERD/Reflux Additional Past Medical History / Comment(s): neck pain, blood in stool @times, frequent bloating, diarrhea @times, blind right eye, pt states fabrice shoulder pain r/t rotator cuff issues History of Any Multi-Drug Resistant Organisms: None Reported Past Surgical History: Orthopedic Surgery Additional Past Surgical History / Comment(s): right arm,wrist, right side of face & knee surg related to accident Past Anesthesia/Blood Transfusion Reactions: No Reported Reaction Past Psychological History: No Psychological Hx Reported Smoking Status: Never smoker Past Alcohol Use History: None Reported Past Drug Use History: None Reported - Past Family History Mother Family Medical History: No Reported History Medications and Allergies Home Medications Medication Instructions Recorded Confirmed Type Atorvastatin [Lipitor] 10 mg PO DAILY 06/15/18 05/19/19 History Topiramate [Topamax] 25 mg PO DAILY 06/18/18 05/19/19 History Acetaminophen [Tylenol] 500 mg PO Q4-6H PRN 05/19/19 05/19/19 History Allergies Allergy/AdvReac Type Severity Reaction Status Date / Time No Known Allergies Allergy Verified 05/19/19 11:04 Surgical - Exam Vital Signs Temp Pulse Resp BP Pulse Ox 98.1 F 89 16 136/90 95 05/19/19 11:01 05/19/19 11:01 05/19/19 11:01 05/19/19 11:01 05/19/19 11:01 - General well developed, well nourished, no distress - Eyes PERRL - ENT normal pinna - Neck no masses - Respiratory normal expansion - Cardiovascular Rhythm: regular - Abdomen Abdomen: soft, non tender Assessment and Plan Assessment: History of perforated diverticulitis. Patient will undergo low anterior resection.
[2019-05-19] MEDS ORDERED: NALOXONE 0.4 MG/ML 1 ML VIAL IV PRN (12:03)
[2019-05-19] MEDS ORDERED: MIDAZOLAM 2 MG/2 ML VIAL ONE (12:38)
[2019-05-19] MEDS ORDERED: PROPOFOL 10 MG/ML 20 ML VIAL IV ONE (12:38)
[2019-05-19] MEDS ORDERED: GLYCOPYRROLATE 0.2 MG/ML 2 ML VIAL ONE (12:38)
[2019-05-19] MEDS ORDERED: LIDOCAINE 1% INJ 10MG/ML (20 ML MDV) ONE (12:38)
[2019-05-19] MEDS ORDERED: fentaNYL (PF) 50 MCG/ML 2 ML AMP ONE (12:38)
[2019-05-19] MEDS ORDERED: ROCURONIUM BROMIDE 10 MG/ML 10 ML VIAL IV ONE (12:38)
[2019-05-19] MEDS ORDERED: PHENYLEPHRINE-0.9% NACL SYG 1 MG/10 ML SYRINGE ONE (12:38)
[2019-05-19] MEDS ORDERED: NEOSTIGMINE 1 MG/ML 10 ML VIAL ONE (12:38)
[2019-05-19] MEDS ORDERED: LACTATED RINGERS 1,000 ML IV ONE (13:03)
[2019-05-19] MEDS ORDERED: ONDANSETRON 4 MG/2 ML VIAL IVP PRN (14:08)
[2019-05-19] MEDS ORDERED: METOCLOPRAMIDE 5 MG/ML 2 ML VIAL IVP PRN (14:08)
[2019-05-19] MEDS ORDERED: BENZOCAINE/MENTHOL LOZENG 1 EACH LOZENGE MUCOUS MEM PRN (14:08)
--- NOTE | 2019-05-19 14:14 | P.OP ---
Date of Procedure: 05/19/19 Preoperative Diagnosis: Diverticulitis Postoperative Diagnosis: Diverticulitis Procedure(s) Performed: Low anterior resection Anesthesia: VASU Surgeon: Willis Lara Estimated Blood Loss (ml): 5 Pathology: other (Sigmoid colon) Condition: stable Disposition: PACU Description of Procedure: DESCRIPTION OF PROCEDURE: The patient was placed on the operating table in the supine position. Patient received a general anesthesia. Patient was then placed in the dorsal lithotomy position. The patients abdomen was prepped and draped in the usual sterile fashion. Through a low midline incision, the abdomen was entered. The Hutchins retractor was placed in the wound. The stomach appeared normal. The small bowel appeared normal. The liver appeared normal. The right colon and transverse colon appeared normal. On the left colon, there was an extensive diverticulosis noted. The sigmoid colon was then mobilized by dividing the white line of Toldt with electrocautery. At this point, the proximal sigmoid colon was transected with a GI stapler after a window had been made in the mesentery. The distal sigmoid colon was then dissected. Mesentery was taken down between Lorraine clamps and ligated with #0 silk ties. At a point beyond the lesion, the bowel was then transected with a Proximate stapler. This was then removed. The splenic flexure was then taken down in order to provide adequate lengthening of the sigmoid colon. At this point, the auto purse-string suture device was placed across the proximal colon and fired. The colon was then opened. The 29 mm EEA anvil was then placed into the colon and then the purse-string was secured. The EEA stapler device was then placed in the patients anus and passed into the rectum. The nail for the EEA was then brought out through the distal rectum and then attached to the anvil. The EEA stapler device was then fired. The anastomosis was inspected. There were 2 good donuts of tissue removed from the EEA stapler. The anastomosis was then tested under water and there was no air leak seen. At this point the abdomen was then irrigated. There was no bleeding seen. The fascia was then closed with double stranded #1 PDS. The skin was closed with roderick. The patient tolerated the procedure well.
[2019-05-19] MEDS: ROPIVACAINE 250 MG, HYDROMORPHONE (PF) 5 MG in SODIUM CHLORIDE 0.9% 200 ML EPIDURAL PRN ×2 (14:15→15:01)
[2019-05-19] MEDS: D5-0.45% NACL WITH KCL 20MEQ/L 1,000 ML IV SCH ×2 (15:38→22:08)
[2019-05-19 15:51] LABS: Basophils % (A) 0 %; Eosinophils # (A) 0.1 k/uL (0-0.7); Eosinophils % (A) 0 %; HCT 48.1 % (39.0-53.0); HGB 15.6 gm/dL (13.0-17.5); Lymphocytes # (A) 1.5 k/uL (1.0-4.8); Lymphocytes % (A) 9 %; MCHC 32.5 g/dL (31.0-37.0); MCV 92.3 fL (80.0-100.0); Mean Platelet Volume 7.2; Monocytes # (A) 0.1 k/uL (0-1.0); Monocytes % (A) 1 %; Neutrophils # (A) 14.6 k/uL (1.3-7.7); Neutrophils % (A) 89 %; Platelet Count 293 k/uL (150-450); RBC 5.22 m/uL (4.30-5.90); RDW 12.5 % (11.5-15.5); WBC 16.3 k/uL (3.8-10.6)
[2019-05-19 16:00] LABS: African American GFR (CKD) >90 (>60 ml/min/1.73 sqM); Anion Gap 11 mmol/L; Blood Urea Nitrogen 16 mg/dL (9-20); Calcium 9.2 mg/dL (8.4-10.2); Carbon Dioxide 21 mmol/L (22-30); Chloride 108 mmol/L (98-107); Glucose 137 mg/dL (74-99); Non-African American GFR(CKD) >90 (>60 ml/min/1.73 sqM); Potassium 4.4 mmol/L (3.5-5.1); Sodium 140 mmol/L (137-145)
[2019-05-19] MEDS: HEPARIN SODIUM,PORCINE 5,000 UNIT/ML 1 ML VIAL SQ SCH (18:30)
[2019-05-19] MEDS: ALVIMOPAN 12 MG CAPSULE PO SCH (22:00)
[2019-05-19] MEDS: FAMOTIDINE 20 MG/2 ML VIAL IV SCH (22:00)
[2019-05-20] MEDS: HEPARIN SODIUM,PORCINE 5,000 UNIT/ML 1 ML VIAL SQ SCH ×4 (00:04→23:40)
[2019-05-20] MEDS: LACTATED RINGERS 1,000 ML IV SCH (00:20)
[2019-05-20] MEDS: D5-0.45% NACL WITH KCL 20MEQ/L 1,000 ML IV SCH ×3 (04:56→23:42)
[2019-05-20] MEDS: diphenhydrAMINE 50 MG/ML 1 ML VIAL IVP PRN ×2 (05:46→11:03)
--- NOTE | 2019-05-20 07:11 | P.PN ---
Progress Note - Text 05/20 650am 48-year-old male status post low anterior resection by Dr. Carter. Postop day 1 patient was seen this morning and evaluated for pain control, patient has an epidural catheter was solution running at 8 mL an hour. She has a VAS of 2 with complaints of pruritus. I ordered Benadryl earlier this morning for him and is feeling much better. No motor or sensory deficits noted. Has been ambulating well. Plan to continue epidural infusion
[2019-05-20] MEDS: ALVIMOPAN 12 MG CAPSULE PO SCH ×2 (08:32→20:11)
[2019-05-20] MEDS: FAMOTIDINE 20 MG/2 ML VIAL IV SCH ×2 (08:32→20:11)
--- NOTE | 2019-05-20 12:07 | P.PN ---
Subjective Progress Note Date: 05/20/19 CHIEF COMPLAINT: Diverticulitis HISTORY OF PRESENT ILLNESS: 48-year-old male who is status post low anterior resection. Postoperative day #1. Patient examined this morning at the bedside. Pain is tolerable. Epidural infusing at 4 mL an hour. Tolerating full liquid diet. Denies passing flatus. Vital signs stable. Temp 99.6 this morning. WBC 16.3. PHYSICAL EXAM: VITAL SIGNS: Reviewed. GENERAL: Well-developed in no acute distress. HEENT: No sclera icterus. Extraocular movements grossly intact. Moist buccal mucosa. Head is atraumatic, normocephalic. ABDOMEN: Soft. Nondistended. Appropriate surgical tenderness. Midline d ressing with serosanguineous drainage. NEUROLOGIC: Alert and oriented. Cranial nerves II through XII grossly intact. ASSESSMENT: 1. History of diverticulitis, status post low anterior resection PLAN: -Pain control. Continue epidural. Discontinue postop day #3 -Continue Cohen catheter will epidural in place -Incentive spirometer 10 times an hour while awake -Increase activity as tolerated -Continue clear liquid diet. Await bowel function Nurse practitioner note has been reviewed by physician. Signing provider agrees with the documented findings, assessment, and plan of care. Objective - Vital Signs Vital signs: Vital Signs Temp 99.6 F 05/20/19 07:00 Pulse 97 05/20/19 08:40 Resp 16 05/20/19 08:40 BP 130/74 05/20/19 07:00 Pulse Ox 95 05/20/19 07:00 Intake & Output 05/19/19 05/20/19 05/20/19 18:59 06:59 18:59 Intake Total 2164.733 1500 Output Total 800 2800 Balance 1364.733 -1300 Weight 88.451 kg Intake: IV 2141 Intake, IV Titration 23.733 1500 Amount D5-0.45% NaCl with KCl 1500 20Meq/l 1,000 ml @ 125 mls/hr IV .Q8H [facility] Rx#: [id number] Ropivacaine 250 mg 23.733 Hydromorphone (Pf) 5 mg In Sodium Chloride 0.9% 200 ml @ Per Protocol EPIDURAL .Q0M PRN Rx#: [id number] Output: Urine 675 2800 Estimated Blood Loss 125 Other: Voiding Method Indwelling Catheter Indwelling Catheter Indwelling Catheter - Labs CBC & Chem 7: 05/19/19 15:28 05/19/19 15:28 Labs: Abnormal Lab Results - Last 24 Hours (Table) 05/19/19 05/19/19 Range/Units 15:28 15:28 WBC 16.3 H (3.8-10.6) k/uL Neutrophils # 14.6 H (1.3-7.7) k/uL Chloride 108 H (98-107) mmol/L Carbon Dioxide 21 L (22-30) mmol/L Glucose 137 H (74-99) mg/dL
[2019-05-20] MEDS: KETOROLAC 30 MG/ML 1 ML VIAL IVP PRN ×2 (13:23→20:11)
[2019-05-21] MEDS: KETOROLAC 30 MG/ML 1 ML VIAL IVP PRN ×2 (04:04→21:34)
[2019-05-21] MEDS: LACTATED RINGERS 1,000 ML IV SCH (04:35)
[2019-05-21 07:16] LABS: Basophils # (A) 0.1 k/uL (0-0.2); Basophils % (A) 0 %; Eosinophils # (A) 0.1 k/uL (0-0.7); Eosinophils % (A) 1 %; HCT 39.8 % (39.0-53.0); HGB 13.4 gm/dL (13.0-17.5); Lymphocytes # (A) 2.5 k/uL (1.0-4.8); Lymphocytes % (A) 18 %; MCH 30.3 pg (25.0-35.0); MCHC 33.7 g/dL (31.0-37.0); MCV 90.1 fL (80.0-100.0); Mean Platelet Volume 7.3; Monocytes % (A) 7 %; Neutrophils # (A) 10.2 k/uL (1.3-7.7); Neutrophils % (A) 73 %; Platelet Count 292 k/uL (150-450); RBC 4.42 m/uL (4.30-5.90); RDW 12.6 % (11.5-15.5)
[2019-05-21 07:23] LABS: African American GFR (CKD) >90 (>60 ml/min/1.73 sqM); Anion Gap 11 mmol/L; Blood Urea Nitrogen 16 mg/dL (9-20); Calcium 9.5 mg/dL (8.4-10.2); Carbon Dioxide 26 mmol/L (22-30); Chloride 102 mmol/L (98-107); Glucose 97 mg/dL (74-99); Non-African American GFR(CKD) >90 (>60 ml/min/1.73 sqM); Potassium 3.9 mmol/L (3.5-5.1); Sodium 139 mmol/L (137-145)
[2019-05-21] MEDS: ALVIMOPAN 12 MG CAPSULE PO SCH ×2 (07:31→21:16)
[2019-05-21] MEDS: D5-0.45% NACL WITH KCL 20MEQ/L 1,000 ML IV SCH ×3 (07:31→21:17)
[2019-05-21] MEDS: FAMOTIDINE 20 MG/2 ML VIAL IV SCH ×2 (07:32→21:17)
[2019-05-21] MEDS: HEPARIN SODIUM,PORCINE 5,000 UNIT/ML 1 ML VIAL SQ SCH ×2 (07:32→16:32)
--- NOTE | 2019-05-21 08:36 | P.PN ---
Progress Note - Text Progress Note Date: 05/21/19 Patient is without complaints. Minimal pain. Ambulating w/o leg weakness. Denies headache or pruritis. Tolerating clears. Epidural @ 4 ml/hr VSS Back - epidural site with some serosanguinous fluid that is dry A/P POD#2 s/p low anterior resection - continue current regimen
--- NOTE | 2019-05-21 13:06 | P.PN ---
Subjective Progress Note Date: 05/21/19 CHIEF COMPLAINT: Diverticulitis HISTORY OF PRESENT ILLNESS: 48-year-old male who is status post low anterior resection. Postoperative day #2. Patient examined this morning at the bedside. Pain is tolerable. Epidural infusing at 4 mL an hour. Tolerating clear liquid diet. patient reports passing flatus. Denies bowel movement. Vital signs stable. afebrile. WBC 14.0. PHYSICAL EXAM: VITAL SIGNS: Reviewed. GENERAL: Well-developed in no acute distress. HEENT: No sclera icterus. Extraocular movements grossly intact. Moist buccal m ucosa. Head is atraumatic, normocephalic. ABDOMEN: Soft. Nondistended. Appropriate surgical tenderness. Midline dressing with serosanguineous drainage. NEUROLOGIC: Alert and oriented. Cranial nerves II through XII grossly intact. ASSESSMENT: 1. History of diverticulitis, status post low anterior resection PLAN: -Pain control. Continue epidural. Discontinue postop day #3 (Tomorrow) -Continue Cohen catheter will epidural in place -Incentive spirometer 10 times an hour while awake -Increase activity as tolerated -Advance diet to full liquid Nurse practitioner note has been reviewed by physician. Signing provider agrees with the documented findings, assessment, and plan of care. Objective - Vital Signs Vital signs: Vital Signs Temp 98.0 F 05/21/19 07:00 Pulse 99 05/21/19 07:38 Resp 18 05/21/19 07:38 BP 144/81 05/21/19 07:00 Pulse Ox 92 L 05/21/19 07:00 Intake & Output 05/20/19 05/21/19 05/21/19 18:59 06:59 18:59 Intake Total 875 250 400 Output Total 4250 1350 Balance -3375 -1100 400 Intake: Intake, IV Titration 875 250 Amount D5-0.45% NaCl with KCl 875 250 20Meq/l 1,000 ml @ 125 mls/hr IV .Q8H [facility] Rx#: [id number] Oral 400 Output: Urine 4250 1350 Uretheral (Cohen) 500 Other: Voiding Method Indwelling Catheter Indwelling Catheter Indwelling Catheter - Labs CBC & Chem 7: 05/21/19 06:27 05/21/19 06:27 Labs: Abnormal Lab Results - Last 24 Hours (Table) 05/21/19 Range/Units 06:27 WBC 14.0 H (3.8-10.6) k/uL Neutrophils # 10.2 H (1.3-7.7) k/uL
[2019-05-21] MEDS: ROPIVACAINE 250 MG, HYDROMORPHONE (PF) 5 MG in SODIUM CHLORIDE 0.9% 200 ML EPIDURAL PRN (14:07)
--- NOTE | 2019-05-21 16:27 | P.CONS ---
History of Present Illness - Reason for Consult Consult date: 05/20/19 medical management Requesting physician: Willis Lara - Chief Complaint abdominal pain - History of Present Illness is a 48-year-old gentleman with prior history of perforated diverticulitis, status post low anterior resection.tolerated procedure well. Pain controlled with epidural. T-max 99.6, WBC 16.3. Tolerating full liquid diet is no nausea vomiting or diarrhea.Passing flatus. Review of Systems ROS Statement: Those systems with pertinent positive or pertinent negative responses have been documented in the HPI. ROS Other: All systems not noted in ROS Statement are negative. Past Medical History Past Medical History: GERD/Reflux Additional Past Medical History / Comment(s): neck pain, blood in stool @times, frequent bloating, diarrhea @times, blind right eye, pt states fabrice shoulder pain r/t rotator cuff issues History of Any Multi-Drug Resistant Organisms: None Reported Past Surgical History: Orthopedic Surgery Additional Past Surgical History / Comment(s): right arm,wrist, right side of face & knee surg related to accident in 1994 Past Anesthesia/Blood Transfusion Reactions: No Reported Reaction Past Psychological History: No Psychological Hx Reported Smoking Status: Never smoker Past Alcohol Use History: None Reported Past Drug Use History: None Reported - Past Family History Mother Family Medical History: No Reported History Medications and Allergies Home Medications Medication Instructions Recorded Confirmed Type Atorvastatin [Lipitor] 10 mg PO DAILY 06/15/18 05/19/19 History Topiramate [Topamax] 25 mg PO DAILY 06/18/18 05/19/19 History Acetaminophen [Tylenol] 500 mg PO Q4-6H PRN 05/19/19 05/19/19 History Hydrocodone/Acetaminophen [[place] 1 tab PO Q6HR PRN 3 Days #12 tab 05/21/19 Rx 5-325] Allergies Allergy/AdvReac Type Severity Reaction Status Date / Time No Known Allergies Allergy Verified 05/19/19 11:04 Physical Exam Vitals: Vital Signs Temp Pulse Pulse Resp BP BP Pulse Ox 05/20/19 14:31 98.1 F 92 17 133/79 94 L 05/20/19 08:40 97 16 05/20/19 07:00 99.6 F 97 16 130/74 95 05/20/19 03:47 16 05/20/19 01:06 98.7 F 102 H 16 123/71 93 L 05/20/19 00:00 16 05/19/19 20:00 18 05/19/19 19:32 97.6 F 106 H 16 151/83 96 05/19/19 17:30 109 H 129/79 05/19/19 17:15 91 112/68 05/19/19 17:00 94 94/55 05/19/19 16:45 87 100/67 05/19/19 16:30 91 103/60 05/19/19 16:15 95 102/56 Intake and Output 05/20/19 05/20/19 05/20/19 06:59 14:59 22:59 Intake Total 750 875 Output Total 2800 3750 Balance -2049 -2874 Intake: Intake, IV Titration 750 875 Amount D5-0.45% NaCl with KCl 750 875 20Meq/l 1,000 ml @ 125 mls/hr IV .Q8H [facility] Rx#: [id number] Output: Urine 2800 3750 Other: Voiding Method Indwelling Catheter Indwelling Catheter PHYSICAL EXAM: VITAL SIGNS: [as above] GENERAL: sitting up in bed, no acute distress HEENT: Conjunctivae normal. eyes normal. NECK: No JVD. No thyroid enlargement. No LNs CARDIOVASCULAR: S1, S2 regular.. No murmur RESPIRATION: Breath sounds diminished in the bases. No rhonchi or crackles. No bronchial breathing. ABDOMEN: Soft, status post surgery, No guarding. no masses palpable.midline dressing-serosanguineous straining Bowel sounds heard. LEGS: No edema. no swelling PSYCHIATRY: Alert and oriented X3, mood and affect normal. NERVOUS SYSTEM: Cranial N 2-12 grossly normal. Moves all 4 limbs. Diffuse weakness No focal deficits. Strength and sensation grossly intact.. Skin: no rash Lymphatic system. No LN neck axilla. Results CBC & Chem 7: 05/21/19 06:27 05/21/19 06:27 Assessment and Plan Assessment: prior history of ruptured diverticulitis, status post low anterior resection Plan: Continue on current medication regime ,monitoring and symptomatic treatment. Pain management and diet advancement as per surgery. Aggressive pulmonary toileting with incentive spirometer reinforced. Increase activity as tolerated. Further recommendations to follow. Thank you Dr. Lara for the consult. The impression and plan of care has been dictated as directed. : I performed a history and examination of this patient, discussed the same with the dictator. I agree with the dictator's note ,documented as a scribe. Any additional findings or plans will be noted.
--- NOTE | 2019-05-21 16:31 | P.PN ---
Subjective Progress Note Date: 05/21/19 status post low anterior resection, postop day 2, maintained on epidural. Pain controlled.passing flatus.afebrile,improving WBC 14.VSS.denies chest pain, palpitations. Objective - Vital Signs Vital signs: Vital Signs Temp 98.2 F 05/21/19 15:00 Pulse 101 H 05/21/19 15:00 Resp 18 05/21/19 15:00 BP 132/80 05/21/19 15:00 Pulse Ox 93 L 05/21/19 15:00 Intake & Output 05/20/19 05/21/19 05/21/19 18:59 06:59 18:59 Intake Total 875 250 922.6 Output Total 4250 1350 Balance -3375 -1100 922.6 Intake: Intake, IV Titration 875 250 522.6 Amount D5-0.45% NaCl with KCl 875 250 350 20Meq/l 1,000 ml @ 125 mls/hr IV .Q8H [facility] Rx#: [id number] Ropivacaine 250 mg 172.6 Hydromorphone (Pf) 5 mg In Sodium Chloride 0.9% 200 ml @ Per Protocol EPIDURAL .Q0M PRN Rx#: [id number] Oral 400 Output: Urine 4250 1350 Uretheral (Cohen) 500 Other: Voiding Method Indwelling Catheter Indwelling Catheter Indwelling Catheter - Exam VITAL SIGNS: [as above] GENERAL: sitting up in bed, no acute distress HEENT: Conjunctivae normal. eyes normal. NECK: No JVD. No thyroid enlargement. No LNs CARDIOVASCULAR: S1, S2 regular.. No murmur RESPIRATION: Breath sounds diminished in the bases. No rhonchi or crackles. No bronchial breathing. ABDOMEN: Soft, status post surgery, No guarding. no masses palpable.midline dressing. Bowel sounds heard. LEGS: No edema. no swelling PSYCHIATRY: Alert and oriented X3, mood and affect normal. NERVOUS SYSTEM: Cranial N 2-12 grossly normal. Moves all 4 limbs. Diffuse weakness No focal deficits. Strength and sensation grossly intact.. Skin: no rash - Labs CBC & Chem 7: 05/21/19 06:27 05/21/19 06:27 Labs: Abnormal Lab Results - Last 24 Hours (Table) 05/21/19 Range/Units 06:27 WBC 14.0 H (3.8-10.6) k/uL Neutrophils # 10.2 H (1.3-7.7) k/uL Assessment and Plan Assessment: prior history of ruptured diverticulitis, status post low anterior resection Plan: Continue on current medication regime ,monitoring and symptomatic treatment. continue with aggressive pulmonary toileting, incentive spirometry reinforce. Pain management and diet advancement as per surgery. Increase activity as tolerated.we will follow along as needed, please do not hesitate to call with any further questions, concerns. Thank you Dr. Lara for the consult. The impression and plan of care has been dictated as directed. : I performed a history and examination of this patient, discussed the same with the dictator. I agree with the dictator's note ,documented as a scribe. Any additional findings or plans will be noted.
[2019-05-22] MEDS: HEPARIN SODIUM,PORCINE 5,000 UNIT/ML 1 ML VIAL SQ SCH ×4 (01:19→23:02)
[2019-05-22] MEDS: LACTATED RINGERS 1,000 ML IV SCH (01:20)
[2019-05-22] MEDS: D5-0.45% NACL WITH KCL 20MEQ/L 1,000 ML IV SCH (05:59)
[2019-05-22 06:53] LABS: Basophils # (A) 0.1 k/uL (0-0.2); Basophils % (A) 1 %; Eosinophils # (A) 0.4 k/uL (0-0.7); Eosinophils % (A) 3 %; HCT 39.2 % (39.0-53.0); HGB 13.3 gm/dL (13.0-17.5); Lymphocytes # (A) 3.1 k/uL (1.0-4.8); Lymphocytes % (A) 29 %; MCH 30.6 pg (25.0-35.0); MCV 89.8 fL (80.0-100.0); Mean Platelet Volume 7.2; Monocytes # (A) 0.9 k/uL (0-1.0); Monocytes % (A) 9 %; Neutrophils % (A) 57 %; Platelet Count 256 k/uL (150-450); RBC 4.36 m/uL (4.30-5.90); RDW 12.5 % (11.5-15.5); WBC 10.6 k/uL (3.8-10.6)
[2019-05-22] MEDS: FAMOTIDINE 20 MG/2 ML VIAL IV SCH ×2 (08:31→21:46)
[2019-05-22] MEDS ORDERED: HYDROmorphone 1 MG/ML 1 ML SYRINGE IVP PRN (10:10)
[2019-05-22] MEDS ORDERED: HYDROcodone/APAP 5-325MG 1 EACH TAB PO PRN (10:10)
--- NOTE | 2019-05-22 10:10 | P.PN ---
Subjective Progress Note Date: 05/22/19 Principal diagnosis: Diverticulitis Patient doing well today. He did have a small bowel movement last night. White blood cell count normal. He is afebrile. He would likely Cohen catheter and epidural removed. Tolerating full liquids. Objective - Vital Signs Vital signs: Vital Signs Temp 98.0 F 05/22/19 07:00 Pulse 104 H 05/22/19 08:30 Resp 18 05/22/19 07:00 BP 137/91 05/22/19 07:00 Pulse Ox 94 L 05/22/19 07:00 Intake & Output 05/21/19 05/22/19 05/22/19 18:59 06:59 18:59 Intake Total 1358.6 2105 200 Output Total 2300 1200 Balance -941.4 905 200 Intake: Intake, IV Titration 522.6 125 Amount D5-0.45% NaCl with KCl 350 125 20Meq/l 1,000 ml @ 50 mls /hr IV .Q20H [facility] Rx#: [id number] Ropivacaine 250 mg 172.6 Hydromorphone (Pf) 5 mg In Sodium Chloride 0.9% 200 ml @ Per Protocol EPIDURAL .Q0M PRN Rx#: [id number] Oral 836 780 200 Tube Feeding 1200 Output: Urine 2300 1200 Other: Voiding Method Indwelling Catheter Indwelling Catheter Indwelling Catheter # Voids 1 # Bowel Movements 1 - Exam Abdomen: Soft, nontender, nondistended, incision clean and dry - Labs CBC & Chem 7: 05/22/19 06:12 05/21/19 06:27 Assessment and Plan (1) Diverticulitis Narrative/Plan: Will advance diet at this time. Remove Cohen and epidural. Ambulate. Current Visit: Yes Status: Acute Code(s): K57.92 - DVTRCLI OF INTEST, PART UNSP, W/O PERF OR ABSCESS W/O BLEED SNOMED Code(s): 947897952
--- NOTE | 2019-05-22 10:49 | P.PN ---
Subjective this is a pleasant 48 years old male with past medical history of GERD, perforated diverticulitis about 1 year ago, he was admitted this time for low anterior resection of his bowel.today is postoperative day #3. A well, he had satisfactorily regular bowel movement last night, is a liquid diet. No abdominal pain no nausea vomiting. His anterior midline incision and the abdomen looks closed and dressing is in place.patient remains an epidural and Cohen catheter with planning to remove them both today.lactic tachycardic buttress of Vitas looks stable. Labs showing leukocytosis improved and his WBC is back to normal at 10.6 K. Objective - Vital Signs Vital signs: Vital Signs Temp 98.0 F 05/22/19 07:00 Pulse 104 H 05/22/19 08:30 Resp 18 05/22/19 07:00 BP 137/91 05/22/19 07:00 Pulse Ox 94 L 05/22/19 07:00 Intake & Output 05/21/19 05/22/19 05/22/19 18:59 06:59 18:59 Intake Total 1358.6 2105 200 Output Total 2300 1200 Balance -941.4 905 200 Intake: Intake, IV Titration 522.6 125 Amount D5-0.45% NaCl with KCl 350 125 20Meq/l 1,000 ml @ 50 mls /hr IV .Q20H [facility] Rx#: [id number] Ropivacaine 250 mg 172.6 Hydromorphone (Pf) 5 mg In Sodium Chloride 0.9% 200 ml @ Per Protocol EPIDURAL .Q0M PRN Rx#: [id number] Oral 836 780 200 Tube Feeding 1200 Output: Urine 2300 1200 Other: Voiding Method Indwelling Catheter Indwelling Catheter Indwelling Catheter # Voids 1 # Bowel Movements 1 - Exam GENERAL: The patient is alert and oriented x3, not in any acute distress. Well d eveloped, well nourished. HEENT: Pupils are round and equally reacting to light. EOMI. No scleral icterus. No conjunctival pallor. Normocephalic, atraumatic. No pharyngeal erythema. No thyromegaly. CARDIOVASCULAR: S1 and S2 present. No murmurs, rubs, or gallops. PULMONARY: Chest is clear to auscultation, no wheezing or crackles. -ABDOMEN: Soft, nontender, nondistended, normoactive bowel sounds. No palpable organomegaly. anterior midline incision, looks close with a dressing is in place MUSCULOSKELETAL: No joint swelling or deformity. EXTREMITIES: No cyanosis, clubbing, or pedal edema. NEUROLOGICAL: Gross neurological examination did not reveal any focal deficits. SKIN: No rashes. no petechiae - Labs CBC & Chem 7: 05/22/19 06:12 05/21/19 06:27 Assessment and Plan Assessment: prior history of ruptured diverticulitis, status post low anterior resection GERD Rotator cuff of shoulder Plan: this is a pleasant 48 years old male who presented for low anterior resection of the bowel. Postoperatively he is doing well, hysterectomy is that so far, his present bowel movement, and his abdominal pain is better. Plan for today is to remove Cohen catheter and epidural catheters.pain management and DVT prophylaxis as per surgery primary team Labs and medication were reviewed.. Continue same treatment. Continue with symptomatic treatment. Resume home medication. Monitor lytes and vitals. DVT and GI prophylaxis. Further recommendations of the clinical course of the p atient thank you for consulting us
[2019-05-23] MEDS: D5-0.45% NACL WITH KCL 20MEQ/L 1,000 ML IV SCH (02:49)
[2019-05-23] MEDS: LACTATED RINGERS 1,000 ML IV SCH (02:49)
[2019-05-23 08:19] VITALS: BP 146/92; PULSE 92; RESP 18; TEMP 98.5
[2019-05-23] MEDS: HEPARIN SODIUM,PORCINE 5,000 UNIT/ML 1 ML VIAL SQ SCH (09:01)
[2019-05-23] MEDS: FAMOTIDINE 20 MG/2 ML VIAL IV SCH (09:01)
--- NOTE | 2019-05-23 10:45 | P.DS ---
Providers Date of admission: 05/19/19 10:17 Expected date of discharge: 05/23/19 Attending physician: Willis Lara Consults: 05/19/19 14:08 Consult Physician Routine Consulting Provider: Mando Willis Consult Reason/Comments: Medical management Do you want consulting provider notified?: Yes Primary care physician: Mando Willis - Discharge Diagnosis(es) (1) Diverticulitis patient was admitted for elective sigmoid resection for diverticulitis. He has done quite well postoperative. His epidural was removed yesterday. He is now tolerating a low fiber diet. Pain is well-controlled. Taking no pain medications other than Toradol. He would like to go home today. Will plan discharge. Follow-up with Dr. Lara 1 week. Current Visit: Yes Status: Acute Plan - Discharge Summary Discharge Rx Participant: Yes New Discharge Prescriptions: New Hydrocodone/Acetaminophen [Haughton 5-325] 1 tab PO Q6HR PRN 3 Days #12 tab PRN Reason: Pain No Action Atorvastatin [Lipitor] 10 mg PO DAILY Topiramate [Topamax] 25 mg PO DAILY Acetaminophen [Tylenol] 500 mg PO Q4-6H PRN PRN Reason: Pain Discharge Medication List Atorvastatin [Lipitor] 10 mg PO DAILY 06/15/18 [History] Topiramate [Topamax] 25 mg PO DAILY 06/18/18 [History] Acetaminophen [Tylenol] 500 mg PO Q4-6H PRN 05/19/19 [History] Hydrocodone/Acetaminophen [Haughton 5-325] 1 tab PO Q6HR PRN 3 Days #12 tab 05/21/19 [Rx] Follow up Appointment(s)/Referral(s): Mando Willis DO [Primary Care Provider] - 1 Week Willis Lara MD [STAFF PHYSICIAN] - 1 Week Activity/Diet/Wound Care/Special Instructions: No driving while taking Haughton No lifting over 10 pounds You may shower. No soaking or tub baths Very light activity until you are reevaluated at your follow up appointment with your surgeon
== END 2019-05-23 12:25 | disposition home or self-care (01) | DRG 331 ==
LOC: 2ORMAIN 10:17 → 4SSUR 14:25
PROVIDERS: ADMIT Surgery; ATTEND Surgery
PROC: 0DTN0ZZ Resection of Sigmoid Colon, Open Approach (ICD-10-PCS; principal; 2019-05-19 12:05)
DX: K57.32 Diverticulitis of large intestine without perforation or abscess without bleeding (principal); D72.829 Elevated white blood cell count, unspecified; H54.61 Unqualified visual loss, right eye, normal vision left eye; L29.9 Pruritus, unspecified; K21.9 Gastro-esophageal reflux disease without esophagitis; Z79.899 Other long term (current) drug therapy
CPT/HCPCS: 80048; 85025; 86850; 86900; 86901; 88307

== ENCOUNTER → 2019-07-08 | Outpatient (CLI) | payer BC ==
--- NOTE | 2019-07-08 14:27 | MR ---
EXAMINATION TYPE: MR shoulder RT wo con DATE OF EXAM: 07/08/2019 COMPARISON: Outside shoulder x-ray June 11, 2019 HISTORY: R shoulder pain with difficulty raising arm overhead for 1.5 years per patient. TECHNIQUE: Multiplanar, multisequence imaging of the right shoulder is performed without contrast. FINDINGS: Rotator Cuff: Distal supraspinatus and infraspinatus tendons are intact. Distal subscapularis tendon is intact. Rotator cuff muscle bulk is preserved. Acromioclavicular Joint: No significant joint space narrowing. No significant spurring. Distal acromi on morphology unremarkable. Glenohumeral Joint: No significant effusion or spurring. Labrum: Some increased signal superior labrum thought present which is diminutive in size or coronal image 14. Biceps Tendon: The long head of biceps is in normal location within bicipital groove. Intra-articular portion not well-visualized. This is better seen on sagittal image 15 corresponding to coronal image 8 with subtle increased signal. Bone marrow signal: Tiny subchondral cysts posterior superior lateral humeral head image 17 and sagit catherine image 22. Other: No additional significant abnormality is appreciated. IMPRESSION: 1. No rotator cuff tear. 2. Possible tear superior labrum versus [place] complex though thickened middle glenohumeral ligament is not well visualized. 3. Some tendinosis intracapsular portion long head of biceps tendon near the anchor.
== END | disposition home or self-care (01) ==
LOC: RADMRIMAIN 13:37
PROVIDERS: ATTEND Orthopaedic Surgery
DX: M67.813 Other specified disorders of tendon, right shoulder (principal)

== ENCOUNTER → 2019-07-15 | Outpatient (CLI) | payer BC ==
[2019-07-15 15:55] LABS: Basophils # (A) 0.1 k/uL (0-0.2); Basophils % (A) 1 %; Eosinophils # (A) 0.2 k/uL (0-0.7); Eosinophils % (A) 2 %; HCT 48.4 % (39.0-53.0); HGB 16.1 gm/dL (13.0-17.5); Lymphocytes % (A) 30 %; MCH 29.6 pg (25.0-35.0); MCHC 33.2 g/dL (31.0-37.0); MCV 89.3 fL (80.0-100.0); Mean Platelet Volume 7.3; Monocytes # (A) 0.6 k/uL (0-1.0); Monocytes % (A) 6 %; Neutrophils # (A) 5.9 k/uL (1.3-7.7); Neutrophils % (A) 59 %; Platelet Count 292 k/uL (150-450); RBC 5.43 m/uL (4.30-5.90); RDW 12.5 % (11.5-15.5); WBC 9.9 k/uL (3.8-10.6)
[2019-07-15 16:05] LABS: Potassium 4.3 mmol/L (3.5-5.1)
== END | disposition home or self-care (01) ==
LOC: LABPAT 14:58
PROVIDERS: ATTEND Orthopaedic Surgery
DX: Z01.812 Encounter for preprocedural laboratory examination (principal); M75.41 Impingement syndrome of right shoulder
CPT/HCPCS: 36415; 80051; 85025

== ENCOUNTER 2019-08-05 07:42 | Day surgery (SDC) | payer BC ==
[2019-08-03 13:24] VITALS: BMI 31.3
--- NOTE | 2019-08-04 14:31 | HP ---
HISTORY AND PHYSICAL DATE OF SURGERY: Porfirio Nix is a 48-year-old patient seen with progressive right shoulder pain. We discussed options for treatment. He elected to proceed with arthroscopy. Consent was obtained. PAST MEDICAL HISTORY: Hyperlipidemia. PAST SURGICAL HISTORY: Colon resection. DAILY MEDICATIONS: Lipitor, Topamax. ALLERGIES: None. SOCIAL HISTORY: Denies tobacco use. PHYSICAL EVALUATION OF THE RIGHT SHOULDER: Flexion 120 degrees. Abduction is 90 degrees. External rotation is 40 degrees with pain and weakness. There is tenderness along the anterior lateral acromion and rotator cuff insertion site. Impingement sign is positive at 90 degrees. His distal neurovascular exam is intact. RADIOGRAPHS OF THE RIGHT SHOULDER: Revealed a type 2 anterior acromion as well as cystic changes of the greater tuberosity. Right shoulder MRI revealed labral tear and biceps tendinitis. IMPRESSION: 1. Right shoulder impingement with labral tear. 2. Right shoulder bicipital tendinitis. 3. Hyperlipidemia. PLAN: Right shoulder arthroscopy with subacromial decompression, arthroscopic labral repair versus debridement, probable biceps tenotomy. MMODL / IJN: [id number] /
[~2019-08-05 07:42] MED LIST changes: -HEPARIN SODIUM,PORCINE 5,000 UNIT/ML 1 ML VIAL SQ ONE; +LACTATED RINGERS 1,000 ML IV SCH; -SCOPOLAMINE 1.5MG/72HR PATCH TRANSDERM ONE; +fentaNYL (PF) 50 MCG/ML 2 ML AMP IVP PRN; -metroNIDAZOLE-NS PMX 500 MG in SALINE 1 100ML.BAG IVPB ONE
[2019-08-05 08:01] VITALS: RESP 16
[2019-08-05] MEDS ORDERED: LIDOCAINE 1% INJ 10MG/ML (20 ML MDV) ONE (09:26)
[2019-08-05] MEDS ORDERED: MIDAZOLAM 2 MG/2 ML VIAL ONE (09:26)
[2019-08-05] MEDS ORDERED: ROPIVACAINE 5 MG/ML 30 ML VIAL ONE (09:26)
[2019-08-05] MEDS ORDERED: PROPOFOL 10 MG/ML 20 ML VIAL IV ONE (09:26)
[2019-08-05] MEDS ORDERED: KETOROLAC 30 MG/ML 1 ML VIAL ONE (09:26)
[2019-08-05] MEDS ORDERED: SUCCINYLCHOLINE CHLORIDE 100 MG/5 ML SYR IV ONE (09:26)
[2019-08-05] MEDS ORDERED: DEXAMETHASONE SOD PHOSPHATE 4 MG/ML 1 ML VIAL ONE (09:26)
[2019-08-05] MEDS ORDERED: fentaNYL (PF) 50 MCG/ML 2 ML AMP ONE (09:26)
[2019-08-05] MEDS ORDERED: LACTATED RINGERS 1,000 ML IV ONE (09:35)
[2019-08-05 10:55] VITALS: TEMP 97.3
--- NOTE | 2019-08-05 10:58 | P.OP ---
Date of Procedure: 08/05/19 Preoperative Diagnosis: Right shoulder impingement Postoperative Diagnosis: 1. Right shoulder rotator cuff tear 2. Right shoulder impingement 3. Right shoulder acromioclavicular joint osteoarthritis 4. Right shoulder partial long head biceps tendon tear Procedure(s) Performed: 1. Right shoulder arthroscopic rotator cuff repair 2. Right shoulder arthroscopic subacromial decompression 3. Right shoulder arthroscopic Nicole procedure 4. Right shoulder arthroscopic biceps tenotomy Implants: 1Arthrex 4.75 swivel lock anchor Anesthesia: GETA, regional (Interscalene block) Surgeon: Cayetano Hartmann Shoulder Joiner #1: Isaiah Juárez Estimated Blood Loss (ml): 5 Pathology: none sent Condition: stable Disposition: PACU Indications for Procedure: 48-year-old patient seen with progressive right shoulder pain. After treatment options were discussed, he elected to proceed with arthroscopy. Operative Findings: See description of procedure Description of Procedure: Patient underwent an interscalene block by department of anesthesia. The patient was then taken to the operative suite. The patient underwent a general anesthetic by the department of anesthesia. The patient was placed into a lateral position and secured. There was appropriate padding of the bony prominence. Right shoulder was then prepped and draped in normal sterile orthopedic fashion. We placed the extremity in 10 pounds of longitudinal traction. A posterior incision was now made for a posterior working portal site. The trocar and cannula were inserted into the glenohumeral joint. Arthroscopy was initiated. Spinal needle was now inserted anteriorly, to ascertain the anterior working portal site. An incision was now made in that area, a trocar was inserted followed by a probe. There was some hyperemia and partial tearing long head biceps tendon. The glenohumeral joint appeared unremarkable. The labrum was thoroughly probed and was found to be stable. I performed an arthros copic biceps tenotomy. The labrum was again probed and found to be stable. Instruments were removed from glenohumeral joint. Utilizing the posterior working portal site, the trocar and cannula were inserted into the subacromial space. Arthroscopy initiated. I made an incision 2 fingerbreadths lateral to the acromion. I introduced my trocar followed by my ArthroCare ablator. I now began ablating thick subacromial bursal tissue, which exposed the undersurface of the anterior acromion. There was diminished subacromial space. There was a very prominent anterior acromion. A motorized bur was introduced and a subacromial decompression was performed. I also excised some osteophytes off the inferior aspect of the distal clavicle. The AC joint was visualized and noted to be fairly arthritic. The motorized bur was introduced in the anterior portal site and a Nicole procedure was performed without difficulty, decompressing the AC joint nicely. I turned my attention to the rotator cuff. I thoroughly probed the rotator cuff and found a perforation along the posterior aspect of the distal supraspinatus. I debrided the margins getting down to stable tendon tissue. I introduced my motorized bur and abraded the footprint area, getting some petechial bleeding. I now passed 2 everted mattress sutures through good bites of rotator cuff tendon with the assistance of Pepe MOREIRA. I now punched a hole in the area of the footprint for insertion of an anchor. I now passed all 4 limbs of suture through the eyelet of a Arthrex 4.75 swivel lock anchor. I now introduced the eyelet into our pre- punch hole. I held that in position while Pepe MOREIRA tensioned the sutures and deployed the anchor. There was good fixation of the anchor. The residual suture limbs were clipped. We had good compression of the tendon along the entire footprint. I injected 1 mL Renyte intra-articular. Instruments now removed from the portal sites. All portal sites were approximated with nylon suture. Sterile dressings were applied followed by a shoulder immobilizer. Isaiah MOREIRA assisted in this complex case. The patient was awakened, transferred to a bed, and taken to recovery in stable condition.
[2019-08-05 12:24] VITALS: BP 140/87; PULSE 93
--- NOTE | 2019-08-05 21:19 | P.ANPRN ---
Procedure Note - Anesthesia - Nerve Block Performed Right Interscalene Single Time Out Performed: Yes Date of Procedure: 08/05/19 Procedure Start Time: Procedure Stop Time: Location of Patient: PreOp Indication: Acute Post-Operative Pain, Requested by Surgeon Sedation Type: Sedate with meaningful contact maintained Preparation: Sterile Prep Position: Supine Needle Types: Pajunk Needle Gauge: 21 Ultrasound used to visualize needle placement: Yes Ultrasound used to observe medication spread: Yes Blood Aspirated: No Pain Paresthesia on Injection Noted: No Resistance on Injection: Normal Image Stored and Saved: Yes Events: Uneventful and Well Tolerated (ropi .5% 30cc plus dexamethasone 4mg)
== END 2019-08-05 12:30 | disposition home or self-care (01) ==
LOC: OR 07:42
PROVIDERS: ATTEND Orthopaedic Surgery
DX: M75.101 Unspecified rotator cuff tear or rupture of right shoulder, not specified as traumatic (principal); M75.41 Impingement syndrome of right shoulder; M19.011 Primary osteoarthritis, right shoulder; S46.111A Strain of muscle, fascia and tendon of long head of biceps, right arm, initial encounter; M25.711 Osteophyte, right shoulder; X58.XXXA Exposure to other specified factors, initial encounter; E78.5 Hyperlipidemia, unspecified; Z79.899 Other long term (current) drug therapy
CPT/HCPCS: 64415; 76942; 29826; 29827; 29824; C1713; Q4212; J2250; J1100 ×2; J0690; J2405; J2001; J3010; J1885; J2795; J0330; J2704

== ENCOUNTER 2020-03-10 09:45 | Day surgery (SDC) | payer BC ==
[2020-03-08 10:47] VITALS: BMI 70.7
[~2020-03-10 09:45] MED LIST changes: -DEXAMETHASONE SOD PHOSPHATE 10 MG/ML 1 ML VIAL IV ONE; -HYDROmorphone 0.5 MG/0.5 ML SYRINGE IVP PRN; +LIDOCAINE 1% (10MG/ML) FOR IV START INTRADERMA PRN; -LIDOCAINE 1% 20 ML VIAL (10MG/ML) FOR IV START INTRADERMA PRN; -MIDAZOLAM 2 MG/2 ML VIAL IV PRN; -ONDANSETRON 4 MG/2 ML VIAL IVP ONE; -fentaNYL (PF) 50 MCG/ML 2 ML AMP IVP PRN
[2020-03-10 10:44] VITALS: RESP 16; TEMP 98.1
[2020-03-10] MEDS ORDERED: PROPOFOL 10 MG/ML 20 ML VIAL IV ONE (11:36)
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
--- NOTE | 2020-03-10 11:48 | P.OP ---
Date of Procedure: 03/10/20 Preoperative Diagnosis: GI bleed Postoperative Diagnosis: Diverticulosis Procedure(s) Performed: Colonoscopy Anesthesia: MAC Surgeon: Willis Lara Pathology: none sent Condition: stable Disposition: PACU Description of Procedure: The patient's placed on the endoscopy table in the lateral position. He received IV sedation. The rectal exam was performed which revealed no abnormalities. The colonoscope was then placed patient anus passed throughout the entire colon. The ileocecal valve lesions. The cecum, ascending and transverse colon appeared normal. In the descending; was mild diverticular changes. The scope was then brought back the rectum this appeared normal. Scope withdrawn for patient.
[2020-03-10 11:58] VITALS: PULSE 75
[2020-03-10 12:12] VITALS: BP 147/91
== END 2020-03-10 12:30 | disposition home or self-care (01) ==
LOC: ORWHC2ENDO 09:45
PROVIDERS: ATTEND Surgery
DX: K57.31 Diverticulosis of large intestine without perforation or abscess with bleeding (principal); K63.89 Other specified diseases of intestine; K21.9 Gastro-esophageal reflux disease without esophagitis; E78.5 Hyperlipidemia, unspecified; H54.61 Unqualified visual loss, right eye, normal vision left eye; M25.512 Pain in left shoulder; G47.33 Obstructive sleep apnea (adult) (pediatric); E66.01 Morbid (severe) obesity due to excess calories; Z98.890 Other specified postprocedural states; Z79.899 Other long term (current) drug therapy; Z68.32 Body mass index [BMI] 32.0-32.9, adult; Z87.81 Personal history of (healed) traumatic fracture
CPT/HCPCS: 45378; J2704

== ENCOUNTER → 2022-03-11 | Outpatient (CLI) | payer BC ==
[2022-03-11 17:59] LABS: Basophils # (A) 0.09 X 10*3/uL (0.00-0.10); Basophils % (A) 0.9 %; Eosinophils # (A) 0.06 X 10*3/uL (0.04-0.35); Eosinophils % (A) 0.6 %; HCT 46.4 % (39.6-50.0); HGB 15.6 g/dL (13.0-17.0); Immature Grans, Automated 0.3 %; Lymphocytes # (A) 2.86 X 10*3/uL (0.90-5.00); Lymphocytes % (A) 29.1 %; MCH 30.1 pg (27.0-32.0); MCHC 33.6 g/dL (32.0-37.0); MCV 89.4 fL (80.0-97.0); Mean Platelet Volume 9.8 fL (9.5-12.2); Monocytes # (A) 0.73 X 10*3/uL (0.20-1.00); Monocytes % (A) 7.4 %; NRBC Per 100 WBC 0 /100 WBCS (0.0-0.0); Neutrophils # (A) 6.05 X 10*3/uL (1.80-7.70); Neutrophils % (A) 61.7 %; Platelet Count 378 X 10*3/uL (140-440); RBC 5.19 X 10*6/uL (4.40-5.60); RDW 12.9 % (11.5-14.5); WBC 9.82 X 10*3/uL (4.50-10.00)
== END | disposition home or self-care (01) ==
LOC: LABPAT 12:28
PROVIDERS: ATTEND Surgery
DX: Z01.812 Encounter for preprocedural laboratory examination (principal); K43.0 Incisional hernia with obstruction, without gangrene
CPT/HCPCS: 85025

== ENCOUNTER → 2022-07-04 | Outpatient (CLI) | payer BC ==
--- NOTE | 2022-07-04 20:49 | MR ---
EXAMINATION TYPE: MR shoulder LT wo con DATE OF EXAM: 07/04/2022 COMPARISON: Outside left shoulder x-ray July 02, 2022 HISTORY: Left shoulder pain for 2 years with difficulty raising arm overhead. TECHNIQUE: Multiplanar, multisequence imaging of the left shoulder is performed without contrast. FINDINGS: Rotator Cuff: Some areas of mild increased signal infraspinatus tendon with some surrounding edema. M ore prominent areas of increased signal in the supraspinatus tendon with small focal tear involving t he anterior fibers at articular surface sagittal image 8 measuring 4 mm in AP diameter. Rotator cuff muscle bulk preserved. Acromioclavicular Joint: Mild narrowing with moderate capsular hypertrophy mass effect along the supe rior aspect supraspinatus muscle and tendon sagittal image 16 for reference. Glenohumeral Joint: Small to moderate size effusion. Fluid extends anteriorly along the course of the subscapularis tendon and muscle. No significant spurring. Labrum: Increased signal superior labrum suggesting degenerative tearing. Biceps Tendon: The long head of biceps is in normal location within bicipital groove. Increased signa l intra-articular portion. Bone marrow signal: No focal abnormal marrow signal is appreciated. Other: Mild edema is seen in the muscle extending from the acromioclavicular joint superiorly and chelly trally. IMPRESSION: Tendinosis/interstitial tearing of the infraspinatus tendon and to greater degree suprasp inatus tendon. Focal partial tearing at articular surface anterior fibers supraspinatus tendon. Degen erative changes as detailed above. Underlying impingement is present. Correlate clinically. There is partial tearing of the central portion long head of biceps tendon.
== END | disposition home or self-care (01) ==
LOC: RADMRIMAIN 08:58
PROVIDERS: ATTEND Orthopaedic Surgery
DX: M19.012 Primary osteoarthritis, left shoulder (principal); M75.112 Incomplete rotator cuff tear or rupture of left shoulder, not specified as traumatic; M25.412 Effusion, left shoulder

== ENCOUNTER 2022-08-21 06:53 | Day surgery (SDC) | payer BC ==
--- NOTE | 2022-08-20 13:18 | HP ---
HISTORY AND PHYSICAL DATE OF SCHEDULED SURGERY: 08/21/2022. HISTORY OF PRESENT ILLNESS: Porfirio Nix is a 51-year-old gentleman, seen with progressive left shoulder pain. We discussed options for treatment. He elected to proceed with left shoulder arthroscopy. Consent regarding the procedure was obtained. PAST MEDICAL HISTORY: Hypertension. PAST SURGICAL HISTORY: Right shoulder arthroscopy, colon resection. DAILY MEDICATIONS: 1. Losartan. 2. Verapamil. 3. Ibuprofen. ALLERGIES: None. SOCIAL HISTORY: Denies tobacco use. PHYSICAL EVALUATION OF LEFT SHOULDER: Flexion is 40 degrees, abduction is 40 degrees, external rotation is 20 degrees with pain and weakness. There is tenderness along the anterolateral acromion and rotator cuff insertion site. Impingement sign is positive at 70 degrees. Cross-body adduction sign is positive. Drop-arm sign is positive. Distal neurovascular exam is intact. RADIOGRAPHS: Left shoulder radiographs revealed a type 2 acromion evidence for acromioclavicular joint osteoarthritis and cystic changes of the tuberosity. Left shoulder MRI revealed impingement, partial rotator cuff tear, partial biceps tendon and labral tear. IMPRESSION: 1. Left shoulder impingement with partial rotator cuff tendon tear. 2. Left shoulder labral tear. 3. Left shoulder partial biceps tear. 4. Hypertension. PLAN: Left shoulder arthroscopy with subacromial decompression, possible arthroscopic rotator cuff repair, debridement, labral tear, and biceps tenotomy versus tenodesis. MMODL / IJN: [id number] /
[2022-08-21] MEDS ORDERED: LACTATED RINGERS 1,000 ML IV SCH (07:18)
[2022-08-21] MEDS ORDERED: ONDANSETRON 4 MG/2 ML VIAL IVP ONE (07:18)
[2022-08-21] MEDS ORDERED: HYDROmorphone 0.5 MG/0.5 ML SYRINGE IVP PRN (07:18)
[2022-08-21] MEDS ORDERED: LIDOCAINE 1% (10MG/ML) FOR IV START INTRADERMA PRN (07:18)
[2022-08-21] MEDS ORDERED: DEXAMETHASONE SOD PHOSPHATE 4 MG/ML 1 ML VIAL IV ONE (07:18)
[2022-08-21] MEDS ORDERED: fentaNYL (PF) 50 MCG/1 ML VIAL IVP ONE (07:53)
[2022-08-21] MEDS ORDERED: MIDAZOLAM 2 MG/2 ML VIAL IVP ONE (07:53)
[2022-08-21] MEDS ORDERED: FAMOTIDINE 20 MG/2 ML VIAL IVP ONE (08:13)
[2022-08-21] MEDS ORDERED: fentaNYL (PF) 50 MCG/ML 2 ML AMP ONE (08:25)
[2022-08-21] MEDS ORDERED: PHENYLEPHRINE-0.9% NACL SYG 1,000 MCG/10 ML SYRINGE ONE (08:25)
[2022-08-21] MEDS ORDERED: PROPOFOL 10 MG/ML 20 ML VIAL IV ONE (08:25)
[2022-08-21] MEDS ORDERED: MIDAZOLAM 2 MG/2 ML VIAL ONE (08:25)
[2022-08-21] MEDS ORDERED: ROCURONIUM 10 MG/ML (5 ML VIAL) IV ONE (08:25)
[2022-08-21] MEDS ORDERED: SUCCINYLCHOLINE CHLORIDE 200 MG/10 ML VIAL IV ONE (08:25)
[2022-08-21] MEDS ORDERED: LIDOCAINE 2% INJ 20 MG/ML (2 ML VIAL) ONE (08:25)
[2022-08-21] MEDS ORDERED: LACTATED RINGERS 1,000 ML IV ONE (09:41)
--- NOTE | 2022-08-21 10:09 | P.OP ---
Date of Procedure: 08/21/22 Preoperative Diagnosis: Left shoulder impingement Postoperative Diagnosis: 1. Left shoulder rotator cuff tear 2. Left shoulder impingement 3. Left shoulder partial long head biceps tendon tear 4. Left shoulder superficial labral tear Procedure(s) Performed: 1. Left shoulder arthroscopic rotator cuff repair 2. Left shoulder arthroscopic subacromial decompression 3. Left shoulder arthroscopic biceps tenotomy 4. Left shoulder arthroscopic debridement labral tear Implants: 1Arthrex 4.75 swivel lock anchor Anesthesia: GETA, regional (Interscalene block) Surgeon: Cayetano Hartmann Powder Core Tester #1: Isaiah Juárez Estimated Blood Loss (ml): 7 Pathology: none sent Condition: stable Disposition: PACU Indications for Procedure: 51-year-old patient seen with progressive left shoulder pain. After treatment options were discussed, he elected to proceed with arthroscopy. Operative Findings: see description of procedure Description of Procedure: Patient underwent an interscalene block by department of anesthesia. The patient was then taken to the operative suite. The patient underwent a general anesthetic by the department of anesthesia. The patient was placed into a lateral position and secured. There was appropriate padding of the bony prominence. Left shoulder was then prepped and draped in normal sterile orthopedic fashion. We placed the extremity in 10 pounds of longitudinal traction. A posterior incision was now made for a posterior working portal site. The trocar and cannula were inserted into the glenohumeral joint. Arthroscopy was initiated. Spinal needle was now inserted anteriorly, to ascertain the anterior working portal site. An incision was now made in that area, a trocar was inserted followed by a probe. There was partial tearing and hyperemia involving the long head biceps tendon. There was some superficial fraying/tearing of the superior labrum. There were some mild grade 1 chondromalacia changes of the glenoid fossa. I performed an arthroscopic biceps tenotomy. I debrided out the superficial labral tear. The residual labrum was probed and was found to be stable. Instruments were now removed from the glenohumeral joint. Utilizing the posterior working portal site, the trocar and cannula were inserted into the subacromial space. Arthroscopy initiated. I made an incision 2 fingerbreadths lateral to the acromion. I introduced my trocar followed by my ArthroCare ablator. I now began ablating thick subacromial bursal tissue, which exposed the undersurface of the anterior acromion. There was diminished suba cromial space. There was a very prominent anterior acromion. A motorized bur was introduced and a subacromial decompression was performed. I also excised some osteophytes off the inferior aspect of the distal clavicle. The AC joint was visualized and noted to to be moderately arthritic. I did not think enough toward a Nicole procedure. I turned my attention to the rotator cuff tendon. There was a full-thickness tear noted along the distal supraspinatus tendon. I debrided the margins getting down to stable tendon tissue. I abraded the footprint with a motorized bur. The defect/tear measuring approximately 1.5 cm and was freely mobile over the footprint. With the assistance of Pepe MOREIRA I passed 3 everted mattress sutures through good bites of rotator cuff tendon. I now punched hole in the footprint area for insertion of an anchor. All 6 limbs of suture were passed through the eyelet of a Arthrex 4.75 swivel lock anchor. I placed the eyelet into the pre-punched hole. I held the eyelet into the pre-punched hole while Pepe MOREIRA tensioned all 6 limbs of suture and deployed the anchor with good fixation noted. All residual suture limbs were now clipped. We had good compression of the tendon along the entire footprint. Instruments now removed from the portal sites. All portal sites were approximated with nylon suture. Sterile dressings were applied followed by a shoulder sling. Isaiah MOREIRA assisted in this case. The patient was awakened, transferred to a bed, and taken to recovery in stable condition.
[2022-08-21 10:10] VITALS: TEMP 97.3
--- NOTE | 2022-08-21 11:07 | P.ANPRN ---
Procedure Note - Anesthesia - Nerve Block Performed Left Interscalene Single Time Out Performed: Yes ([id number]) Date of Procedure: 08/21/22 Procedure Start Time: 07:53 Procedure Stop Time: 07:59 Location of Patient: PreOp Indication: Acute Post-Operative Pain, Requested by Surgeon Specifically requested for management of pain by DrRai: Cayetano Hartmann Sedation Type: Sedate with meaningful contact maintained Preparation: Sterile Prep Position: Supine Catheter: None Needle Types: Pajunk Needle Gauge: 21 Ultrasound used to visualize needle placement: Yes Ultrasound used to observe medication spread: Yes Injectate: 0.5% Ropivacaine (see comment for volume) (30cc) Blood Aspirated: No Pain Paresthesia on Injection Noted: No Resistance on Injection: Normal Image Stored and Saved: Yes Events: Uneventful and Well Tolerated
[2022-08-21 11:10] VITALS: RESP 16
[2022-08-21 11:16] VITALS: BP 147/85; PULSE 94
== END 2022-08-21 12:45 | disposition home or self-care (01) ==
LOC: OR 06:53
PROVIDERS: ATTEND Orthopaedic Surgery
DX: M75.42 Impingement syndrome of left shoulder (principal); M75.102 Unspecified rotator cuff tear or rupture of left shoulder, not specified as traumatic; S46.212A Strain of muscle, fascia and tendon of other parts of biceps, left arm, initial encounter; G89.18 Other acute postprocedural pain; I10 Essential (primary) hypertension; Z98.890 Other specified postprocedural states; Z79.1 Long term (current) use of non-steroidal anti-inflammatories (NSAID); Z79.899 Other long term (current) drug therapy
CPT/HCPCS: 64415; 76942; 29827; 29826; C1713 ×2; J2250; J0330; J1100; J0690; J2405; J3010 ×2; J2370; J2704; J2001

== ENCOUNTER → 2022-08-26 | Outpatient (CLI) | payer BC ==
[2022-08-26 18:41] LABS: Protein, Total 7.2 g/dL (6.2-8.2)
[2022-08-26 18:48] LABS: Hepatitis C IgG Antibody Nonreactive (Nonreactive)
[2022-08-26 19:17] LABS: Creatine Kinase 63 U/L (35-257); Rheumatoid Factor, Qnt <10 IU/mL (0-15)
[2022-08-26 19:59] LABS: HIV 2 AB Non-Reactive (Non-Reactive); HIV AB P24 Non-Reactive (Non-Reactive); HIV P24 AG Non-Reactive (Non-Reactive)
[2022-08-27 10:43] LABS: Angiotensin-1 Converting Enz. 30 U/L (8-52)
[2022-08-27 11:58] LABS: HLA B27 POSITIVE
[2022-08-27 13:51] LABS: C-ANCA <1:20 Titer (<1:20)
[2022-08-27 23:51] LABS: Albumin 4.38 g/dL (3.80-4.90)
== END | disposition home or self-care (01) ==
LOC: LABWHC1 12:23
PROVIDERS: ATTEND Internal Medicine Rheumatology
DX: M79.643 Pain in unspecified hand (principal); M79.673 Pain in unspecified foot; M25.559 Pain in unspecified hip; M25.569 Pain in unspecified knee; M25.519 Pain in unspecified shoulder; R20.2 Paresthesia of skin
CPT/HCPCS: 36415; 82164; 82550; 83520; 84165; 84443; 85652; 86038; 86140; 86200; 86235; 86255; 86431; 86618; 86747; 86803; 86812; 87390

== ENCOUNTER → 2022-08-26 | Outpatient (CLI) | payer BC ==
--- NOTE | 2022-08-26 14:49 | XR ---
EXAMINATION TYPE: XR chest 2V DATE OF EXAM: 08/26/2022 COMPARISON: NONE HISTORY: Rheumatoid arthritis. TECHNIQUE: Frontal and lateral views of the chest are obtained. FINDINGS: Slightly elevated left hemidiaphragm and low lung volumes. There is no focal air space opac ity, pleural effusion, or pneumothorax seen. The cardiac silhouette size is within normal limits. The osseous structures are intact. IMPRESSION: No acute cardiopulmonary process.
--- NOTE | 2022-08-26 14:51 | XR ---
EXAMINATION TYPE: XR Hip Bilateral and AP pelvis DATE OF EXAM: 08/26/2022 COMPARISON: CT abdomen and pelvis September 06, 2018 HISTORY: Rheumatoid arthritis with pelvic and bilateral hip pain TECHNIQUE: A single AP view of the pelvis is obtained. Two views of the bilateral hips are obtained. FINDINGS: There is no acute fracture/dislocation evident in the pelvis. The hip and sacroiliac join ts appear symmetric and unremarkable. Pubic symphysis is intact. The overlying soft tissue appears u nremarkable. Two views of bilateral hips show no acute fracture or dislocation. No focal lytic or sclerotic lesio n seen in the proximal femurs bilaterally. And os acetabuli on the right is incidentally redemonstrat ed. The overlying soft tissue is unremarkable bilaterally. IMPRESSION: As above.
--- NOTE | 2022-08-26 14:56 | XR ---
EXAMINATION TYPE: XR hand complete bilateral DATE OF EXAM: 08/26/2022 CLINICAL HISTORY: Rheumatoid arthritis TECHNIQUE: Frontal, lateral and oblique images of the bilateral hands are obtained. COMPARISON: Prior right hand x-ray November 11, 2015 FINDINGS: There is no acute fracture/dislocation evident in either hand. Mild to moderate narrowing throughout the joint spaces of the right hand including MCP involvement. Mild spurring of the fifth DIP is redemonstrated. Mild diffuse soft tissue swelling redemonstrated. Similar findings in the left hand the left hand has mild to moderate spurring at the first interphalangeal joint and marginal ero jyoti along the ulnar distal aspect of the third proximal phalanx. Bony destruction of the proximal ca rpal row in the right wrist is redemonstrated similar to prior with minimal remnant scaphoid bone. Fadia tamiko bone is destroyed or dislocated similar to prior. The capitate is articulating with the distal r adius similar to prior. Carpal joint spaces are better preserved in the left hand. IMPRESSION: As above.
--- NOTE | 2022-08-26 14:59 | XR ---
EXAMINATION TYPE: XR foot complete bilateral DATE OF EXAM: 08/26/2022 CLINICAL HISTORY: Rheumatoid arthritis TECHNIQUE: Frontal, lateral, and oblique images of the bilateral feet are obtained. COMPARISON: None FINDINGS: There is no acute fracture/dislocation evident in either foot. Hallux valgus positioning r ight first metatarsophalangeal joint. There is flexion in varus positioning of the fifth toe bilatera lly. There are small inferior calcaneal spurs bilaterally. There is enthesopathy posterior superior c alcaneus at distal Achilles tendon insertion bilaterally. Mild soft tissue swelling along dorsal surf jt mid foot level near the navicular articulation with the cuneiform bones in the right foot. IMPRESSION: As above.
== END | disposition home or self-care (01) ==
LOC: RADXRMAIN 13:37
PROVIDERS: ATTEND Internal Medicine Rheumatology
DX: M06.9 Rheumatoid arthritis, unspecified (principal); M25.59 Pain in other specified joint; M25.569 Pain in unspecified knee; M25.519 Pain in unspecified shoulder; R20.2 Paresthesia of skin; M79.671 Pain in right foot
CPT/HCPCS: 71046; 73521

== ENCOUNTER → 2023-08-19 | Outpatient (CLI) | payer BC | END | disposition home or self-care (01) | LOC: LABWHC1 10:39 | PROVIDERS: ATTEND Internal Medicine Rheumatology | DX: Z51.81 Encounter for therapeutic drug level monitoring (principal); Z15.89 Genetic susceptibility to other disease; M13.80 Other specified arthritis, unspecified site; Z79.899 Other long term (current) drug therapy | CPT/HCPCS: 36415; 86480 ==